=== PATIENT | male | born 1965 | race Caucasian/White ===

== ENCOUNTER 2022-03-15 17:56 | Emergency (ER) | payer OTHER ==
[~2022-03-15] VITALS: Ht 185.4 cm; Wt 106.6 kg
[2022-03-15 17:59] VITALS: BP 132/64
[2022-03-15 18:42] LABS: BASOPHILS % (AUTO) 0.2 % (0.0-2.0); EOSINOPHILS # (AUTO) 0.1 K/uL (0-0.4); EOSINOPHILS % (AUTO) 0.8 % (0.0-4.0); HEMATOCRIT 31.9 % (36-52); HEMOGLOBIN 9.8 g/dL (12.0-18.0); LYMPHOCYTES # (AUTO) 1.5 K/uL (2.0-11.5); LYMPHOCYTES % (AUTO) 12.4 % (20.5-51.1); MEAN CORPUSCULAR HEMOGLOBIN 26 pg (27-31); MEAN CORPUSCULAR HGB CONC 31 g/dL (33-37); MEAN CORPUSCULAR VOLUME 85.6 fL (80-94); MONOCYTES # (AUTO) 1.3 K/uL (0.8-1.0); MONOCYTES % (AUTO) 10.6 % (1.7-9.3); NEUTROPHILS # (AUTO) 9.5 K/uL (1.8-7.7); PLATELET COUNT (AUTO) 120 K/uL (140-450); RED BLOOD CELL COUNT(AUTO) 3.73 MIL/uL (4.20-6.10); RED CELL DISTRIBUTION WIDTH 20.6 % (11.6-13.7); WHITE BLOOD COUNT (AUTO) 12.5 K/uL (4.8-10.8)
[2022-03-15 18:52] LABS: APPEARANCE,URINE CLEAR (CLEAR); BILIRUBIN,URINE 1+ (NEGATIVE); BLOOD, URINE 3+ (NEGATIVE); COLOR,URINE BROWN (YELLOW); LEUKOCYTE ESTERASE ,URINE 3+ (NEGATIVE); NITRITE, URINE NEGATIVE (NEGATIVE); PH,URINE 5.5 (5.0-9.0); UGLUCOSE NEGATIVE (NEGATIVE)
[2022-03-15 19:13] LABS: RBC,URINE 11-20 (MOD) /HPF (0-5)
[2022-03-15 19:14] LABS: OTHER CASTS, URINE None Seen /LPF (None Seen)
[2022-03-15 19:17] LABS: ALBUMIN 2.8 g/dL (3.4-5.0); ANION GAP 8.9 (8-16); CARBON DIOXIDE 35.8 mmol/L (21-32); CREATININE 0.7 mg/dL (0.6-1.3); POTASSIUM 3.7 mmol/L (3.5-5.1); TOTAL BILIRUBIN 0.5 mg/dL (0.0-1.0)
--- NOTE | 2022-03-15 19:27 | NUR ---
[facility]ATHALIE [facility] D/T BLEEDING FROM SUPRAPUBIC BAG AND PENIS. DENIES ANY OTHER COMPLAINTS. PATIENT IS TRACHED AND VENTED. AAOX1, ON MONITOR.
[2022-03-15] MEDS ORDERED: KEFSUS GT (21:05)
--- NOTE | 2022-03-15 21:14 | NUR ---
ER OK TO GIVE [facility] PT HAS NO IV ACCESS. WILL MEDICATE WITH [facility].
[2022-03-15] MEDS ORDERED: LIDOCAINE MPF 1% 5 ML ONE (21:43)
[2022-03-15] MEDS ORDERED: cefTRIAXone 1,000 MG VIAL ONE (21:43)
[2022-03-15 21:58] VITALS: BP 117/68
--- NOTE | 2022-03-15 21:59 | NUR ---
[facility] WAS CALLED TO NOTIFY OF DISCHARG/F/U INSTRUCTIONS. NKE REPORT GIVEN TO WILLIS GREGORIO. WILL AWAIT FOR TRANSPORTATION ARRANGEMENT.
[2022-03-16 00:09] VITALS: BP 128/79
--- NOTE | 2022-03-16 00:30 | NUR ---
[facility] NOW HERE TO WHEEL MOLDER PT. NKE REPORT GIVEN TO EMS. RT AT BEDSIDE TO ASSIST. PT IS STABLE FOR DISCHARGE, ALL DISCHARGE PAPERS GIVEN TO EMS.
== END 2022-03-16 00:30 ==
LOC: MED 17:56
DX: N39.0 Urinary tract infection, site not specified (principal); R31.9 Hematuria, unspecified
CPT/HCPCS: 36415; 80053; 81001; 85025; 87086; 96372; 99285; J0696; J2001

== ENCOUNTER 2022-06-25 03:38 | Inpatient (IN) | payer OTHER ==
[~2022-06-25] VITALS: Ht 185.4 cm; Wt 104.3 kg
[2022-06-25] MEDS: NYSTATIN POW 100 MU/GM 15 GM BTL TP SCH (00:09)
[2022-06-25] MEDS: BLOOD GLUCOSE MONITORING 1 DEV DEV FS SCH ×3 (00:09→16:30)
[~2022-06-25 03:38] MED LIST: KEFSUS GT
[2022-06-25 03:40] VITALS: BP 126/67
--- NOTE | 2022-06-25 03:40 | NUR ---
Patient placed on bed 10.
--- NOTE | 2022-06-25 03:42 | NUR ---
Patient BIB by ALS from [facility]. C/O fever, abnormal labs R/O sepsis today. Per reported, Patient had fever, right upper thigh redness, swelling yesterday, R/O sepsis, Blood tested result WBC 22.8. Patient had fever ~ 2200 PM temp 104. PMHx: CVA (Quadriplegia), DM, Hypertensive heart disease, Epilepsy
[2022-06-25] MEDS ORDERED: PIPERACILLIN/TAZOBACTAM 3.375 GM in DEXT 5% MINI-BAG PLUS 50 ML IV ONE (03:45)
[2022-06-25] MEDS ORDERED: NACL 0.9% 1,000 ML IV SCH ×2 (03:45→06:00)
[2022-06-25] MEDS ORDERED: VANCOMYCIN 1,000 MG in DEXTROSE 5% 250 ML IV ONE (03:45)
--- NOTE | 2022-06-25 04:00 | NUR ---
COVID-19 swabs collected and sent to lab.
--- NOTE | 2022-06-25 04:11 | NUR ---
X-Ray at bedside.
[2022-06-25 04:20] LABS: HEMATOCRIT 24.2 % (36-52); HEMOGLOBIN 7.6 g/dL (12.0-18.0); MEAN CORPUSCULAR HEMOGLOBIN 25 pg (27-31); MEAN CORPUSCULAR HGB CONC 31 g/dL (33-37); MEAN CORPUSCULAR VOLUME 80.6 fL (80-94); PLATELET COUNT (AUTO) 179 K/uL (140-450); RED BLOOD CELL COUNT(AUTO) 3.01 MIL/uL (4.20-6.10); RED CELL DISTRIBUTION WIDTH 19.7 % (11.6-13.7)
--- NOTE | 2022-06-25 04:31 | NUR ---
Ultrasound at bedside.
[2022-06-25] MEDS ORDERED: FERR325E14 GT (04:38)
[2022-06-25] MEDS ORDERED: METF-1139 GT (04:38)
[2022-06-25] MEDS ORDERED: APIX2.5 GT (04:38)
[2022-06-25] MEDS ORDERED: LOSA100T1 GT (04:38)
[2022-06-25 04:45] VITALS: BP 130/69
[2022-06-25] MEDS ORDERED: DOXA2TAB2 GT (04:45)
[2022-06-25] MEDS ORDERED: ATOR20TA GT (04:45)
[2022-06-25] MEDS ORDERED: MEDI30SO GT (04:45)
[2022-06-25] MEDS ORDERED: prostat (04:45)
[2022-06-25] MEDS ORDERED: LEVE750T3 GT (04:45)
[2022-06-25] MEDS ORDERED: PROSTAT SF GT (04:45)
[2022-06-25] MEDS ORDERED: DOCU-299 GT (04:45)
[2022-06-25] MEDS ORDERED: ASCO500T95 GT (04:45)
[2022-06-25] MEDS ORDERED: FAMO-368 GT (04:45)
[2022-06-25 04:50] LABS: BILIRUBIN,URINE NEGATIVE (NEGATIVE); BLOOD, URINE 3+ (NEGATIVE); COLOR,URINE YELLOW (YELLOW); LEUKOCYTE ESTERASE ,URINE 3+ (NEGATIVE); NITRITE, URINE NEGATIVE (NEGATIVE); PH,URINE 8.5 (5.0-9.0); UGLUCOSE NEGATIVE (NEGATIVE)
[2022-06-25] MEDS ORDERED: ZINC220T3 GT (04:50)
[2022-06-25] MEDS ORDERED: DOXA2TAB1 GT (04:50)
--- NOTE | 2022-06-25 05:01 | NUR ---
0345 PLACED PATIENT ON CARESCAPE VENT. SETTINGS ARE PRVC 14 VT 450 PEEP 5 FIO2 30%.. PATIENT HAS SIZE PORTEX 8 TRACH. SXNED PT AND SPUTUM SAMPLE SENT TO LAB. ABG DRAWN. SEE RESULTS. NO CHANGES MADE TO VENT SETTINGS POST ABG. TRACH CARE DONE
[2022-06-25 05:06] LABS: ALBUMIN 2.1 g/dL (3.4-5.0); ANION GAP 10.8 (8-16); CARBON DIOXIDE 36.7 mmol/L (21-32); CREATININE 0.9 mg/dL (0.6-1.3); POTASSIUM 3.5 mmol/L (3.5-5.1); TOTAL BILIRUBIN 0.6 mg/dL (0.0-1.0)
[2022-06-25 05:11] LABS: PROTHROMBIN TIME 11.2 secs (10.8-13.4)
[2022-06-25 05:15] LABS: WHITE BLOOD COUNT (AUTO) 25.3 K/uL (4.8-10.8)
[2022-06-25 05:16] LABS: LYMPHOCYTES % (MANUAL) 8 % (20-46); MAGNESIUM 2.1 mg/dL (1.8-2.4); MONOCYTES % (MANUAL) 3 % (5-12); PHOSPHORUS 2.3 mg/dL (2.5-4.9)
--- NOTE | 2022-06-25 05:22 | NUR ---
Med-rec reviewed.
[2022-06-25] MEDS ORDERED: PIPERACILLIN/TAZOBACTAM 3.375 GM VIAL IV ONE (05:38)
[2022-06-25 05:48] LABS: APPEARANCE,URINE SLIGHTLY CLOUDY (CLEAR)
[2022-06-25 05:49] LABS: WBC,URINE 16-25 (MOD) /HPF (0-5)
[2022-06-25] MEDS ORDERED: MAGNESIUM OXIDE 400 MG TAB PO PRN (06:00)
[2022-06-25] MEDS ORDERED: POTASSIUM CHLORIDE 10 MEQ TABER PO PRN (06:00)
[2022-06-25] MEDS ORDERED: ONDANSETRON 4 MG/2 ML VIAL IVP PRN (06:00)
[2022-06-25] MEDS ORDERED: HYDROcodone/APAP 5/325 MG 1 TAB TAB PO PRN (06:00)
[2022-06-25] MEDS ORDERED: VANCOMYCIN PER PHARMACY MC PRN (06:00)
[2022-06-25] MEDS ORDERED: MAG SULF 2000 MG/WATER PREMIX 50 ML IV PRN (06:00)
[2022-06-25] MEDS ORDERED: MORPHINE SULFATE 4 MG/ML SYR IVP PRN (06:00)
[2022-06-25] MEDS ORDERED: VANCOMYCIN 1,000 MG VIAL ONE (06:06)
--- NOTE | 2022-06-25 06:45 | NUR ---
Took photo of coccyx wound as protocol
--- NOTE | 2022-06-25 07:30 | NUR ---
report received from december rn,transfer of care at this time, received pt in bed trach to vent, satting 89% on vent, called rt. running vanco at 160cc/hr on 24 g r foot. attempting to print pictures of sacral wound
--- NOTE | 2022-06-25 08:00 | NUR ---
RECEIVED ON A WallitSCAPE R860 VENTILATOR PLUGGED INTO RED OUTLET TOLERATING WELL WITHOUT COMPLICATIONS NOTED TO A PORTEX DCT #8 AIRWAY SECURED WITH A LEONOR TRACH TIE CUFF PRESSURE CHECKED NOTED AMBU BAG AT BEDSIDE LOC NOT ALERT EQUAL CHEST RISE DEEP TRACHEAL SUCTION FOR LARGE THICK YELLOW/GREEN SECRETIONS AIRWAY PATENT
--- NOTE | 2022-06-25 08:08 | NUR ---
Patient will be admitted to care of DR PROCTOR. Admited to TELEMETRY. Will go to room 108B. Belongings list completed. Report to SALLY PEDRO.
--- NOTE | 2022-06-25 08:08 | NUR ---
TRANSFERRED PATIENT TO [facility] 108-B ON VENTILATOR; REMOVED OXYGEN SUPPLY LINE FROM 50 PSI RECONNECTED TO E-TANK WITH ADEQUATE PSI FOR TRANSPORT TOLERATED TRANSFER WELL WITHOUT EVIDENCE OF ANY ADVERSE REACTIONS NOTED SATURATION 99% HR LOW 100'S
[2022-06-25] MEDS ORDERED: VANCOMYCIN 500 MG in DEXTROSE 5% 100 ML IV SCH (08:10)
--- NOTE | 2022-06-25 08:20 | NUR ---
RESTING COMFORTABLY EQUAL CHEST RISE GOOD AERATION THROUGHOUT BILATERAL LUNG JULIO AIRWAY PATENT
[2022-06-25] MEDS ORDERED: DEXTROSE 50% 50 ML SYR IVP PRN (09:00)
--- NOTE | 2022-06-25 09:00 | NUR ---
ADMITTED PT. FROM ED. TRACH TO VENT WITH ORDERED SETTINGS. NON-VERBAL. G-TUBE INTACT. SUPRAPUBIC CATHETER IN PLACE DRAINING DARK YELLOW URINE. COLOSTOMY IN PLACE NOTED DARK BROWNISH GREEN STOOL NOTED. IV ACCESS TO R FOOT GAUGE 24 NOTED. PER ED PATIENT IS HARD STICK. DR. WINKLER ORDERED PICC LINE PLACEMENT.DR. ROMO HERE AND SEEN THE PATIENT. PATIENT IS STABLE AT THIS TIME.
--- NOTE | 2022-06-25 10:45 | NUR ---
NO APPARENT DISTRESS NOTED GOOD CHEST RISE FRANCES TRACHEAL SUCTION FOR LARGE THICK PALE YELLOW SECRETIONS AIRWAY PATENT
[2022-06-25] MEDS: PIPERACILLIN/TAZOBACTAM 3.375 GM in DEXTROSE 5% 50 ML IV SCH ×2 (12:27→18:00)
--- NOTE | 2022-06-25 15:00 | NUR ---
NO SOB NOTED GOOD CHEST RISE DEEP TRAC HEAL SUCTION FOR LARGE THIN PALE YELLOW SECRETIONS OROPHARYNGEAL SUCTION FOR COPIOUS PALE YELLOW/HAZY SECRETIONS AIRWAY PATENT
[2022-06-25 16:00] VITALS: BP 96/55
--- NOTE | 2022-06-25 16:20 | NUR ---
PATIENT TRANSPORTED TO CT WITH RT AT SIDE AT ALL TIMES.
--- NOTE | 2022-06-25 16:23 | NUR ---
TRANSFERRED PATIENT TO RADIOLOGY FOR ABDOMINAL CT SCAN; REMOVED FROM VENTILATOR PLACED ON SUPPLEMENTAL OXYGEN AT 15 LPM VIA E-TANK TO AMBU BAG/HME/INLINE SUCTION CATHETER/TRACHEOSTOMY TUBE BAG DEPRESSION EVERY SYX SECONDS TOLERATED TRANSFERS AND PROCEDURE WELL WITHOUT COMPLICATIONS NOTED
--- NOTE | 2022-06-25 17:17 | NUR ---
STABLE EQUAL CHEST RISE DEEP TRACHEAL SUCTION FOR SMALL THICK YELLOW SECRETIONS AIRWAY PATENT
[2022-06-25 17:26] VITALS: BP 101/62
--- NOTE | 2022-06-25 18:00 | NUR ---
PICC LINE NURSE HERE TO PLACE PICC LINE. CONSENT WAS OBTAINED FROM DAUGHTER REMY.
--- NOTE | 2022-06-25 18:55 | NUR ---
PATIENT REMAINS STABLE AT THIS TIME. PICC LINE TO RIGHT UPPER ARM X2 LUMEN WAS INSERTED BY PICC LINE NURSE AND VERIFIED VIA X-RAY. WILL ENDORSE TO NOC SHIFT NURSE FOR CONTINUITY OF CARE.
--- NOTE | 2022-06-25 19:26 | NUR ---
AT BEDSIDE NOTICED PATIENT DESATURATED SPO2 TO HIGH 80S. SUCTION PATIENT YELLOW THICK SECRETIONS FROM THE TRACH. SPO2 IMPROVED TO 99%. PATIENT STABLE AT THIS TIME. NO RESPIRATORY DISTRESS NOTED AT THIS TIME. WILL CONTINUE TO MONITOR.
--- NOTE | 2022-06-25 19:30 | NUR ---
RECEIVED REPORT FROM DAY SHIFT NURSE ADZE FOR CONTINUITY OF CARE. PATIENT IS NON-VERBAL, NON-RESPONSIVE; BUT IS ABLE TO LOOK AT YOU. PATIENT IS TRACH-VENT; BREATHING IS NORMAL WITH SYMMETRICAL RISE AND FALL OF CHEST. PATIENT'S IV IS A PICC LINE, DOUBLE LUMEN IN THE RIGHT UPPER ARM; RUNNING D5 NS AT 80ML. PATIENT IS SLEEPING, LYING IN SEMI-FOWLERS POSITION WITH PATCH OVER LEFT EYE. BED IS IN LOWEST POSITION, WHEELS LOCKED, CALL LIGHT IN PLACE. WILL CONTINUE TO OBSERVE PATIENT.
[2022-06-25] MEDS: DEXT 5% /NACL 0.9% 1,000 ML IV SCH (19:45)
[2022-06-25] MEDS: VANCOMYCIN HCL 1.25 GM in DEXTROSE 5% 250 ML IV SCH (19:47)
[2022-06-25 20:00] VITALS: BP 101/62
--- NOTE | 2022-06-25 20:00 | NUR ---
RESPIRATORY WENT INTO ROOM TO ASSESS PATIENT. PATIENT'S O2 WAS IN THE HIGH 80'S SO RT RAISED FIO2 FROM 30% TO 40%; O2 SATURATION WENT UP TO 99%. RT STAYED WITH PATIENT FOR A WHILE, AND WAS ABLE TO PUT THE PATIENT BACK ON FIO2 WITH A O2 SATURATION REMAINING AT 99%. ADMINISTERED VANCOMYCIN IVPB TO PATIENT. IVPB WAS STARTED SUCCESSFULLY WITHOUT ANY ISSUES. PATIENT IS STILL SLEEPING. WILL CONTINUE TO OBSERVE PATIENT. Addendum: 06/25/22 at 2008 by Ulises Monson RN FIO2 IS ONCE AGAIN 40
--- NOTE | 2022-06-25 23:10 | NUR ---
AT BEDSIDE WITH PATIENT UPON INITIAL AUSCULTATION PATIENT WAS FOUND TO HAVE COARSE CRACKLES. SUCTIONED PATIENT ONE TIME AND THEIR BREATH SOUNDS BECAME CLEAR. WILL CONTINUE TO MONITOR.
[2022-06-26] VITALS: BP 109/70
--- NOTE | 2022-06-26 00:15 | NUR ---
OBTAINED PATIENT'S BS; BS WAS 123, NO INSULIN COVERAGE WAS NEEDED. ADMINISTERED MEDICATIONS TO PATIENT. PATIENT TOLERATED MEDICATION'S WELL. EMPTIED PATIENT'S COLOSTOMY BAG, 180ML. STOOL WAS LIQUID AND GREEN IN COLOR. PATIENT'S BREATHING IS NORMAL WITH SYMMETRICAL RISE AND FALL OF CHEST. WILL CONTINUE TO OBSERVE PATIENT.
[2022-06-26] MEDS ORDERED: PIPERACILLIN/TAZOBACTAM 3.375 GM VIAL IV ONE ×2 (00:24→05:40)
[2022-06-26] MEDS: PIPERACILLIN/TAZOBACTAM 3.375 GM in DEXTROSE 5% 50 ML IV SCH ×4 (00:30→19:38)
[2022-06-26] MEDS: DEXT 5% /NACL 0.9% 1,000 ML IV SCH ×2 (00:50→19:35)
--- NOTE | 2022-06-26 01:45 | NUR ---
ASSESSED PATIENT'S WOUND. PATIENT HAS DRESSINGS ON THE BACK OF BOTH LEGS JUST BELOW BUTTOCKS, AND A FOAM DRESSING ON HIS SACRAL AREA. DRESSINGS WERE DRY AND INTACT. PATIENT'S BREATHING WAS NORMAL WITH SYMMETRICAL RISE AND FALL OF CHEST. BED WAS IN LOWEST POSITION, WHEELS LOCKED, CALL LIGHT IN PLACE. WILL CONTINUE TO OBSERVE PATIENT.
--- NOTE | 2022-06-26 02:30 | NUR ---
LOOKED IN ON PATIENT. PATIENT WAS SLEEPING, LYING IN SEMI-FOWLERS POSITION. BED IS IN LOWEST POSITION, WHEELS LOCKED, CALL LIGHT IN PLACE. WILL CONTINUE TO OBSERVE PATIENT.
[2022-06-26 04:00] VITALS: BP 110/70
--- NOTE | 2022-06-26 06:08 | NUR ---
ADMINISTERED IVPB ZOSYN. IVPB WAS ADMINISTERED SUCCESSFULLY WITHOUT ANY ISSUES. PATIENT IS BREATHING WITH SYMMETRICAL RISE AND FALL OF CHEST. WILL CONTINUE TO OBSERVE PATIENT.
[2022-06-26] MEDS: BLOOD GLUCOSE MONITORING 1 DEV DEV FS SCH ×4 (07:07→21:31)
--- NOTE | 2022-06-26 07:30 | NUR ---
ADMINISTERED VANCOMYCIN TO PATIENT. IVPB WAS STARTED SUCCESSFULLY WITHOUT ANY ISSUES. PATIENT IS BREATHING WITH SYMMETRICAL RISE AND FALL OF CHEST. WILL ENDORSE CARE TO DAY SHIFT NURSE. Addendum: 06/26/22 at 0823 by Ulises Monson RN ALSO OBTAINED BS, BS WAS 152. ADMINISTERED HUMALOG 2 UNITS FOR COVERAGE.
[2022-06-26] MEDS: VANCOMYCIN HCL 1.25 GM in DEXTROSE 5% 250 ML IV SCH (07:38)
[2022-06-26] MEDS: INSULIN LISPRO SLIDING SCALE 100 UNITS/ML VIAL SUBQ PRN (07:39)
--- NOTE | 2022-06-26 07:45 | NUR ---
ENDORSED TO DAY SHIFT CHARGE NURSE BETTY FOR CONTINUITY OF CARE. PATIENT IS STABLE.
--- NOTE | 2022-06-26 07:52 | NUR ---
RECEIVED ON A ShopSueySCAPE R860 VENTILATOR PLUGGED INTO RED OUTLET TOLERATING WELL WITHOUT ADVERSE REACTIONS TO A PORTEX DCT #8 AIRWAY SECURED WITH A LEONOR TRACH TIE CUFF PRESSURE CHECKED NOTED AMBU BAG AT BEDSIDE STABLE GOOD CHEST RISE DEEP TRACHEAL SUCTION FOR MODERATE THICK YELLOW SECRETIONS AIRWAY PATENT
[2022-06-26 07:53] LABS: BASOPHILS % (AUTO) 0.2 % (0.0-2.0); EOSINOPHILS # (AUTO) 0.1 K/uL (0-0.4); EOSINOPHILS % (AUTO) 0.6 % (0.0-4.0); HEMOGLOBIN 7.3 g/dL (12.0-18.0); LYMPHOCYTES # (AUTO) 0.9 K/uL (2.0-11.5); MEAN CORPUSCULAR HEMOGLOBIN 25 pg (27-31); MEAN CORPUSCULAR HGB CONC 32 g/dL (33-37); MEAN CORPUSCULAR VOLUME 80.4 fL (80-94); MONOCYTES # (AUTO) 0.5 K/uL (0.8-1.0); MONOCYTES % (AUTO) 4.2 % (1.7-9.3); NEUTROPHILS # (AUTO) 9.9 K/uL (1.8-7.7); PLATELET COUNT (AUTO) 172 K/uL (140-450); RED BLOOD CELL COUNT(AUTO) 2.86 MIL/uL (4.20-6.10); WHITE BLOOD COUNT (AUTO) 11.4 K/uL (4.8-10.8)
[2022-06-26 07:58] LABS: ALBUMIN 1.9 g/dL (3.4-5.0); ANION GAP 9.4 (8-16); CARBON DIOXIDE 38.4 mmol/L (21-32); CREATININE 0.8 mg/dL (0.6-1.3); MAGNESIUM 2.4 mg/dL (1.8-2.4); TOTAL BILIRUBIN 0.6 mg/dL (0.0-1.0)
[2022-06-26 08:00] VITALS: BP 117/66
[2022-06-26 08:00] LABS: POTASSIUM 2.8 mmol/L (3.5-5.1)
[2022-06-26 08:28] LABS: LYMPHOCYTES % (AUTO) 8.2 % (20.5-51.1); NEUTROPHILS % (AUTO) 86.8 % (42.2-75.2)
--- NOTE | 2022-06-26 09:17 | NUR ---
PATIENT HAS BEEN SCREENED AND CATEGORIZED HIGH NUTRITION RISK. PATIENT WILL BE SEEN WITHIN 1-2 DAYS OF ADMISSION. 06/25/22-06/27/[address] REFERRAL RECEIVED FOR TF PATIENT. Addendum: 06/26/22 at [address] REFERRAL/CONSULT REASON: WOUNDS/PRESSURE ULCERS PER
[2022-06-26] MEDS ORDERED: POTASSIUM CHL 40 MEQ/ D5-1/2NS 1,000 ML IV SCH (09:20)
[2022-06-26] MEDS: KCL 20 MEQ/WATER INJ PREMIX 200 ML IV PRN (10:13)
[2022-06-26] MEDS: NYSTATIN POW 100 MU/GM 15 GM BTL TP SCH ×2 (10:16→21:38)
[2022-06-26 12:00] VITALS: BP 109/65
--- NOTE | 2022-06-26 12:18 | NUR ---
RESTING COMFORTABLY NO EVIDENCE OF RESPIRATORY DISTRESS NOTED GOOD CHEST RISE DEEP TRACHEAL SUCTION FOR LARGE SEMI THICK YELLOW SECRETIONS AIRWAY PATENT
[2022-06-26 16:00] VITALS: BP 108/67
--- NOTE | 2022-06-26 16:39 | NUR ---
06/26/2022 RD INITIAL ASSESSMENT COMPLETED. PLEASE REFER TO NUTRITION ASSESSMENT UNDER CARE ACTIVITY FOR ESTIMATED NUTRITIONAL NEEDS. 1.WHEN/IF MEDICALLY APPROPRIATE TO INITIATE TF, RECOMMEND GLUCERNA 1.2 RUBEN WITH A GOAL RATE OF 60ML/HR WITH PROSOURCE BID (120 KCAL, 30 GRAMS PROTEIN)TO PROMOTE WOUND HEALING. -FWF 240 Q8H -START AT 20ML/HR AND INCREASE BY 20 ML Q4H PT TOLERATES UNTIL GOAL RATE IS REACHED. THIS TF WILL PROVIDE (WITH PROSOURCE BID) 1848 KCAL, 86 GRAMS OF PROTEIN, AND 1440 ML VOLUME (1159 ML FREE WATER), MEETING 100% OF ESTIMATED ENERGY NEEDS; ADEQUATE. 2.WHEN/IF MEDICALLY APPROPRIATE, RECOMMEND VITAMIN C AND ZINC TO PROMOTE WOUND HEALING; DOSAGE PER MD. 3.MONITOR NPO STATUS. 4.RD TO FOLLOW-UP IN 2-3 DAYS PATIENT IS HIGH RISK. AGUSTINA DELUNA RD
[2022-06-26] MEDS ORDERED: VANCOMYCIN 1,000 MG in DEXTROSE 5% 250 ML IV SCH (19:00)
--- NOTE | 2022-06-26 19:06 | NUR ---
PATIENT REPORT RECEIVED FROM DAYSHIFT RN. CARE OF PATIENT TAKEN OVER. WILL CONTINUE TO MONITOR.
--- NOTE | 2022-06-26 19:10 | NUR ---
REPORT RECEIVED FROM GAETANO PEDRO. CARE TAKEN OVER. PATIENT IS NON REPSONSIVE , ON VENT WITH TRACH. BREATHING WITH THE VENT AT RESP RATE OF 14. MINIMUM SECRETIONS. PT WITH G-TUBE, COLOSTOMY , SUPRAPUBIC CATHETER. PATIENTS LEFT EYE BULDGES OUT WITH A WHITISH LAYER OVER THE EYEBALL, EYE IS COVERED WITH DRESSING. PT WITH PRESSURE WOUND TO COCCYX, DRESSING INTACT. PT WITH GENERALIZED DEPENDENT EDEMA OVER ENTIRE BODY. WILL CONTINUE TO MONITOR.
--- NOTE | 2022-06-26 19:10 | NUR ---
REPORT RECEIVED FROM GAETANO PEDRO. CARE OF PATIENT TAKEN OVER. PATIENT ON VENT WITH TRACH COLLAR. BREATHING WITH VENT. UNABLE TO COMMUNICATE. OPENS EYES WHEN TURNING PATIENT. PATIENTS LEFT EYE IS BULDGING OUT WITH WHITE LAYER OVER EYE, GAUZE OVER EYE. PATIENT IN NO APPARENT DISTRESS. WILL CONTINUE TO MONITOR.
--- NOTE | 2022-06-26 20:01 | NUR ---
End of Shift Summary: Patient remained stable throughout the shift. Provided patient with all necessary meds and services as he is not verbally responsive. Patient remains stable without change at this time.
[2022-06-26 22:38] VITALS: BP 107/70
[2022-06-27] VITALS: BP 110/72
[2022-06-27] MEDS: PIPERACILLIN/TAZOBACTAM 3.375 GM in DEXTROSE 5% 50 ML IV SCH ×4 (00:42→17:37)
[2022-06-27] MEDS: DEXT 5% /NACL 0.9% 1,000 ML IV SCH ×2 (01:50→14:14)
[2022-06-27 04:05] VITALS: BP 105/68
[2022-06-27] MEDS: BLOOD GLUCOSE MONITORING 1 DEV DEV FS SCH ×4 (06:42→21:02)
[2022-06-27] MEDS: INSULIN LISPRO SLIDING SCALE 100 UNITS/ML VIAL SUBQ PRN ×2 (06:44→21:02)
[2022-06-27 07:19] LABS: BASOPHILS % (AUTO) 0.3 % (0.0-2.0); EOSINOPHILS # (AUTO) 0.1 K/uL (0-0.4); EOSINOPHILS % (AUTO) 1.7 % (0.0-4.0); HEMATOCRIT 25.9 % (36-52); HEMOGLOBIN 8.1 g/dL (12.0-18.0); LYMPHOCYTES # (AUTO) 1.1 K/uL (2.0-11.5); LYMPHOCYTES % (AUTO) 20.3 % (20.5-51.1); MEAN CORPUSCULAR HEMOGLOBIN 25 pg (27-31); MEAN CORPUSCULAR HGB CONC 31 g/dL (33-37); MEAN CORPUSCULAR VOLUME 81.1 fL (80-94); MONOCYTES # (AUTO) 0.4 K/uL (0.8-1.0); MONOCYTES % (AUTO) 8.3 % (1.7-9.3); NEUTROPHILS # (AUTO) 3.7 K/uL (1.8-7.7); NEUTROPHILS % (AUTO) 69.4 % (42.2-75.2); PLATELET COUNT (AUTO) 207 K/uL (140-450); RED BLOOD CELL COUNT(AUTO) 3.19 MIL/uL (4.20-6.10); RED CELL DISTRIBUTION WIDTH 19.7 % (11.6-13.7); WHITE BLOOD COUNT (AUTO) 5.3 K/uL (4.8-10.8)
--- NOTE | 2022-06-27 07:40 | NUR ---
FOUND PATIENT ON PRVC 450, F14, +5 35% FIO2. PATIENT IS AWAKE. BED RAISED 30-45%. BREATH SOUNDS WERE COARSE UPON INITIAL AUSCULTATION. SUCTIONED THICK WHITE/CLEAR SECRETIONS AND BREATH SOUNDS IMPROVED AT SECOND LISTEN. VENT IS PLUGGED INTO RED OUTLET, SUCTION, AMBU BAG AND FLOWMETER AT BEDSIDE. WILL CONTINUE TO MONITOR.
[2022-06-27 07:48] LABS: ANION GAP 11.6 (8-16); CARBON DIOXIDE 36.4 mmol/L (21-32); CREATININE 0.7 mg/dL (0.6-1.3); MAGNESIUM 2.3 mg/dL (1.8-2.4); TOTAL BILIRUBIN 0.4 mg/dL (0.0-1.0)
[2022-06-27 08:00] VITALS: BP 131/79
[2022-06-27] MEDS: NYSTATIN POW 100 MU/GM 15 GM BTL TP SCH (09:59)
[2022-06-27 12:00] VITALS: BP 129/82
--- NOTE | 2022-06-27 13:30 | NUR ---
WOUND CARE EVALUATION NOTE: SKIN ASSESSMENT DONE ON THIS 56 Y/O PT ADMITTED FROM SNF WITH INITIAL DX ABNORMAL LAB, CONCERN OF SEPSIS. PAST MEDICAL HX INCLUDES CVA WITH QUADRIPLEGIA, SEIZURE DISORDER, CHRONIC VENTILATOR DEPENDENCE WITH TRACHEOSTOMY, PEG TUBE DEPENDENCE. ALL ABOVE INFORMATION OBTAINED FROM ADMISSION H&P. PT IS AWAKE. LEFT EYE DYSFUNCTION. SKIN IS WARM AND DRY, BLE HAIR GROWTH, NO EDEMA. DORSAL PEDAL PULSES PRESENT AND NORMAL. CAPILLARY REFILLED < 2 SEC. X 10 TOES. LLQ. COLOSTOMY OVAL SHAPE 1 3/4 WITH LOOP BRIDGE(MARITZA) LIKE DEVICE IN PLACE AND SECURED WITH SUTURES. SUPRAPUBIC CATH PATENT WITH MODERATE AMOUNT YELLOW COLOR URINE OUT PUT OBSERVED. PT. ADMITTED WITH MULTIPLE PRESSURE INJURIES. INTEGUMENTARY: -ORAL MEMBRANE PINK INTACT, LIPS, CHEEKS SKIN DRY, NO OPEN WOUNDS -TRACH SITE, PEG TUBE, COLOSTOMY AND SUPRAPUBIC CATH FLORES STOMA SKIN DRY AND CLEAN. SKIN INTACT. -ABDOMEN DISTENDED, SOFT -MOISTURE ASSOCIATED SKIN DAMAGE TO: B/L GROINS, MEDIAL THIGHS AND POSTERIOR THIGHS TO SCROTAL, SKIN REDNESS RASH, PEELING -PRESSURE INJURY DTI TO RIGHT TROCHANTER 4X2CM, WOUND BED PALE PURPLE FLORES-WOUND SKIN MOIST INTACT -PRESSURE INJURY STAGE 2 TO LEFT TROCHANTER 3X2CM, WOUND BED PALE PINK FLORES-WOUND SKIN MOIST INTACT - PRESSURE INJURY STAGE 2, LEFT ISCHIUM 3X2X0.1CM WOUND BED IS RED 100% GRANULATING TISSUE, MOIST, NO ODOR, FLORES WOUND SKIN INTACT. - PRESSURE INJURY STAGE 3, RIGHT ISCHIUM 4X3X0.2CM WOUND BED IS RED 100% GRANULATING TISSUE, MOIST, NO ODOR, FLORES WOUND SKIN INTACT. -PRESSURE INJURY STAGE 4, SACRAL COCCYX 2X3X2 CM, WOUND BED IS RED, 100% GRANULATING TISSUE, MOIST, NO ODOR, FLORES WOUND SKIN INTACT. -BILATERAL HEELS BLANCHABLE REDNESS, SKIN INTACT RECOMMENDATIONS: -APPLY NYSTATIN CREAM TO B/L GROINS, MEDIAL THIGHS AND POSTERIOR THIGHS TO SCROTAL BID AND PRN IF SOILING -CLEANSE SACRAL COCCYX, RIGHT AND LEFT ISCHIUM WITH WOUND CLEANSING SOLUTION AND APPLY ALGINATE DRESSING COVER WITH DRY DRESSING QD AND PRN IF SOILING -APPLY HYDROCOLLOID DRESSING TO RIGHT AND LEFT HIPS Q3 DAYS AND PRN IF SOILING -POSITIONING: TURN AND REPOSITION PATIENT Q 2H OR SOONER USE PILLOWS TO KEEP BONY PROMINENCES FROM DIRECT CONTACT WITH SURFACES USE REPOSITIONING WEDGES TO PROVIDE 30-DEGREE ANGLE FOR SIDE LYING POSITIONS OFFLOADING OR FOAM DRESSING TO ALL TUBING TO PREVENT MEDICAL DEVICES RELATED PRESSURE INJURY -RE-EVALUATING AND MANAGING INCONTINENCE MONITOR SKIN CONDITION DURING POSITION CHANGE DO NOT MASSAGE REDNESS, BONY PROMINENCES FREQUENT FLORES-CARE AND PROVIDE BARRIER CREAMS PRN IF SOILING MOISTURE CONTROL BY OFFER BED ACUNA/URINAL /ABSORBENT PAD TO WICK AND HOLD MOISTURE. MAY OBTAIN ORDER FOR FLEX SEAL, RECTAL BAG OR JONES CATHETER PER PHYSICIAN ORDER UNLESS OTHERWISE CONTRAINDICATED KEEP SKIN DRY AND PROTECT FROM FRICTION -MANAGE FRICTION/SHEAR/MOBILITY KEEP HOB AT THE LOWEST LEVEL OF ELEVATION NO MORE THAN 30 DEGREES UNLESS OTHERWISE CONTRAINDICATED USE LIFT SHEET OR TRANSFER DEVICE TO MOVE PATIENT AND PREVENT LATERAL SHEER. CONSIDER TRAPEZE IF APPROPRIATE PROTECT HEELS, ELBOWS BONY PROMINENCES WITH SKIN BERRIES OR FOAM DRESSING IF EXPOSED TO FRICTION OFFLOAD BILATERAL HEELS BY PLACING PILLOWS UNDER CALVES AT ALL TIMES, UNLESS OTHERWISE CONTRAINDICATED -PRESSURE REDISTRIBUTION SURFACE THERAPY JOHANA ISOFLEX DEEPAK MATTRESS -NUTRITION: PLEASE FOLLOW RD RECOMMENDATIONS AND OFFER NUTRITION SUPPLEMENTS IF ORDERED.
--- NOTE | 2022-06-27 14:38 | NUR ---
DC PLANNING PER NOTES PT IS REPORTED TO BE NON RESPONSIVE, THEREFORE SW OUTREACHED TO [facility] TO GATHER COLLATERAL INFORMATION. SPOKE WITH [facility] SUSY MUNGUIA WHO REPORTS PT IS IN SUBACUTE CARE, ADMISSION DATE 06/16/21. PT IS REPORTED TO BE PRIMARILY BEDBOUND AND IS TOTAL CARE W/ FACILITY. PT NONVERBAL AND UNABLE TO MAKE NEEDS KNOWN. PT IS FOLLOWED BY DR. ERICKSON AT [facility]. PT IS REPORTED TO HAVE ACTIVE FAMILY INVOLVEMENT. DC PLAN IS FOR PT TO RETURN TO [facility], ONCE MEDICALLY STABLE. Addendum: 06/27/22 at 1439 by Markell SANDERS Amended: Links added. Addendum: 07/01/22 at 0937 by Markell Purcell SS DC ORDER PUT IN 06/30, REFERRAL PACKET SENT TO [facility]. SPOKE WITH RODOLFO. PT ACCEPTED TO ROOM 24A, ACCEPTING DR GEORGINA COLEMAN. CALL REPORT NUMBER [phone]. OUTREACHED TO PT NURSE, TO CONFIRM PT IS READY FOR DC, NURSE REPORTS DC ORDER CANCELED FOR ELEVATED WBC. OUTREACHED TO RODOLFO AND ENDORSED, THAT DC ORDER WAS CANCELLED, PENDING LABS. Addendum: 07/01/22 at 1121 by Markell SANDERS DC ORDER 07/01. SPOKE WITH RODOLFO, PT ACCEPTED TO ROOM 24A, DR GEORGINA MANCUSO, CALL REPORT NUMBER [phone]. TRANSPORT REQUEST FORM FAXED TO [facility] [phone] Addendum: 07/01/22 at 1240 by Markell SANDERS OUTREACHED TO [facility] TRANSPORT [phone] FOR UPDATE. SPOKE WITH CADEN, WHO CONFIRMS FAXED WAS RECIEVED. [facility] STILL WORKING ON IDENTIFYING. SW PROVIDED CADEN WITH APPROPRIATE RUBEN BACK NUMBER FOR UPDATE HOUSE SUP [phone] OR [phone]. ENDORSED TO PT NURSE AND HOUSE SUP
[2022-06-27] MEDS ORDERED: HYDROCOLLOID DRESSING TP PRN (14:40)
[2022-06-27] MEDS ORDERED: ALGINATE ROPE MC PRN (14:40)
[2022-06-27 16:00] VITALS: BP 141/81
[2022-06-27] MEDS: HYDROCOLLOID DRESSING TP SCH (16:30)
[2022-06-27] MEDS: NYSTATIN/TRIAMCINOLONE CRM 15 GM TUBE TP SCH (16:31)
--- NOTE | 2022-06-27 19:10 | NUR ---
RECEIVED REPORT FROM DAY SHIFT RN CIERRA FOR CONTINUITY OF CARE. PT IS TRACH TO VENT. SETTINGS: FIO2 35%, VT 450, RT 14, PEEP 5. PT SATING 93%. PT NOT IN ANY DISTRESS. PT HAS GTUBE WITH NO FEEDING RUNNING AT THIS TIME. PT HAS IZABEL PICC LINE RUNNING D5 NS 80 CC/HR. PT HAS SACRAL WOUND. PT HAS SUPRAPUBIC CATH. DRAINING CLEAR YELLOW URINE. PT HAS COLOSTOMY. BED AT THE LOWEST POSITION. HEAD OF THE BED RAISED. WILL CONTINUE TO MONITOR THE PT.
[2022-06-27 20:00] VITALS: BP 138/78
[2022-06-27] MEDS: MEROPENEM 1,000 MG in NACL 0.9% 50 ML IV SCH (21:02)
--- NOTE | 2022-06-27 21:11 | NUR ---
SCHEDULE MEDICATIONS GIVEN. NO ADVERSE REACTION NOTED. WILL CONTINUE TO MONITOR THE PT.
[2022-06-28] VITALS: BP 149/77
--- NOTE | 2022-06-28 01:00 | NUR ---
WAS ABLE TO OBTAIN FEEDING PUMP. FEEDING STARTED PER MD ORDERS.
[2022-06-28] MEDS: NYSTATIN/TRIAMCINOLONE CRM 15 GM TUBE TP SCH ×2 (01:06→12:56)
--- NOTE | 2022-06-28 02:52 | NUR ---
AROUND 2100 HAD A ACCIDENTAL NEEDLE STICK WITH THIS PT. GAVE HEPARIN SHOT AND THOUGHT THE SAFETY LOCK WAS COMPLETELY LOCK AFTER ADMINISTRATING THE SHOT. ACCIDENTLY POKED MY LEFT HAND. WENT TO ER AND SPOKE WITH DR. PACE. ORDER BLOOD WORK AND PRESCRIBED ME SOME MEDICATION. DOCTOR ALSO WANTED TO ORDER AN EXPOSER PANEL FOR PT AND RAPID HIV TEST. MESSAGED PARTNER CCO DOCTOR WATSON TO PUT IN THE ORDERS. WAITING FOR REPLY.
--- NOTE | 2022-06-28 03:37 | NUR ---
Per Rock Norman RN after texting Dr Tejeda, it is ok per Dr Tejeda to order hepatitis panel and rapid HIV tests for this patient Holden Mai. Will order hepatitis panel and rapid HIV tests per Dr Tejeda's order
[2022-06-28] MEDS: DEXT 5% /NACL 0.9% 1,000 ML IV SCH ×2 (03:47→17:03)
[2022-06-28 04:00] VITALS: BP 140/84
--- NOTE | 2022-06-28 04:50 | NUR ---
PT OBSERVED. PT NOT IN ANY DISTRESS. BREATHING EVEN AND UNLABORED. IVF RUNNING PER MD ORDER. FEEDING RUNNING PER MD ORDER. WILL CONTINUE TO MONITOR THE PT.
[2022-06-28] MEDS: MEROPENEM 1,000 MG in NACL 0.9% 50 ML IV SCH ×3 (04:51→20:57)
[2022-06-28] MEDS: BLOOD GLUCOSE MONITORING 1 DEV DEV FS SCH ×4 (06:44→21:10)
[2022-06-28] MEDS: INSULIN LISPRO SLIDING SCALE 100 UNITS/ML VIAL SUBQ PRN ×3 (06:45→21:10)
[2022-06-28 07:08] LABS: BASOPHILS % (AUTO) 0.3 % (0.0-2.0); EOSINOPHILS # (AUTO) 0.1 K/uL (0-0.4); EOSINOPHILS % (AUTO) 0.8 % (0.0-4.0); HEMATOCRIT 27.4 % (36-52); HEMOGLOBIN 8.6 g/dL (12.0-18.0); LYMPHOCYTES # (AUTO) 1.1 K/uL (2.0-11.5); LYMPHOCYTES % (AUTO) 14.5 % (20.5-51.1); MEAN CORPUSCULAR HEMOGLOBIN 26 pg (27-31); MEAN CORPUSCULAR HGB CONC 31 g/dL (33-37); MEAN CORPUSCULAR VOLUME 81.4 fL (80-94); MONOCYTES # (AUTO) 0.6 K/uL (0.8-1.0); MONOCYTES % (AUTO) 7.6 % (1.7-9.3); NEUTROPHILS % (AUTO) 76.8 % (42.2-75.2); PLATELET COUNT (AUTO) 262 K/uL (140-450); RED BLOOD CELL COUNT(AUTO) 3.37 MIL/uL (4.20-6.10); RED CELL DISTRIBUTION WIDTH 20.1 % (11.6-13.7); WHITE BLOOD COUNT (AUTO) 7.8 K/uL (4.8-10.8)
--- NOTE | 2022-06-28 07:25 | NUR ---
ENDORSED PT TO DAY SHIFT RN EDILSON FOR CONTINUITY OF CARE. PT IS STABLE.
[2022-06-28 07:48] LABS: ANION GAP 13.2 (8-16); CARBON DIOXIDE 32.7 mmol/L (21-32); CREATININE 0.7 mg/dL (0.6-1.3); TOTAL BILIRUBIN 0.3 mg/dL (0.0-1.0)
[2022-06-28 07:56] LABS: MAGNESIUM 1.9 mg/dL (1.8-2.4)
--- NOTE | 2022-06-28 08:05 | NUR ---
FOUND PATIENT ON PRVC 450 14 +5 AND 35%. PATIENT HAD COARSE BREATH SOUNDS UPON SUCTIONING, RETRIEVED THICK WHITE SECRETIONS. VENT PLUGGED INTO RED OUTLET. AMBU BAG, SUCTION, AND FLOWMETER AT BEDSIDE. WILL CONTINUE TO MONITOR.
[2022-06-28 08:27] VITALS: BP 157/87
[2022-06-28] MEDS ORDERED: POTASSIUM CHLORIDE 10 MEQ TABER PO SCH ×2 (08:53→11:02)
[2022-06-28 09:17] LABS: POTASSIUM 2.9 mmol/L (3.5-5.1)
--- NOTE | 2022-06-28 11:05 | NUR ---
SPOKE TO DR. ACUÑA IN PERSON POC DISCUSSED ABOUT LLQ. COLOSTOMY STOMA WITH LOOP BRIDGE(MARITZA) LIKE HARD DEVICE IN PLACE AND SECURED WITH SUTURES IF NEED FOR SURGEON TO CONSULT. PER DR. ACUÑA HE WILL TAKE A LOOK FIRST.
--- NOTE | 2022-06-28 11:46 | NUR ---
NURSES NOTE RECEIVED PATIENT IN BED , NO VERBAL , VSS , SINUS RHYTHM ON MONITOR , INCONTINENT X2 , HE HAS COLOSTOMY SUPRAPUBIC CATHETER , ON GASTRIC TUBE RAINING 40CC/H , GLUCERNA 1.2 , SKIN NOT INTACT , ON BIPAP WILL CONTINUE OBSERVE ,
[2022-06-28 12:18] VITALS: BP 141/84
[2022-06-28] MEDS: ALGINATE ROPE MC SCH (13:04)
--- NOTE | 2022-06-28 13:37 | NUR ---
dressing on his wound done ,and Meds given
--- NOTE | 2022-06-28 15:09 | NUR ---
06/28/22 RD FOLLOW UP COMPLETED PLEASE REFER TO NUTRITION ASSESSMENT UNDER CARE ACTIVITY FOR ESTIMATED NUTRITIONAL NEEDS. 1. CONTINUE GLUCERNA 1.2 RUBEN WITH A GOAL RATE OF 60ML/HR WITH PROSOURCE BID (120 KCAL, 30 GRAMS PROTEIN) TO PROMOTE WOUND HEALING. -FWF 240 Q8H OR PER MD -AT GOAL RATE (WITH PROSOURCE BID), PT WILL RECEIVE 1848 KCAL, 86 GRAMS OF PROTEIN, AND 1440 ML VOLUME (1159 ML FREE WATER), MEETING 100% OF ESTIMATED ENERGY NEEDS; ADEQUATE. 2. WHEN/IF MEDICALLY APPROPRIATE, RECOMMEND VITAMIN C AND ZINC TO PROMOTE WOUND HEALING; DOSAGE PER MD. 3. RD TO FOLLOW-UP IN 7 DAYS PATIENT IS LOW RISK. OREN GHOSH RD
[2022-06-28 16:00] VITALS: BP 102/67
[2022-06-28] MEDS ORDERED: NYSTATIN POW 100 MU/GM 15 GM BTL TP SCH (16:00)
--- NOTE | 2022-06-28 16:00 | NUR ---
NUSES NOTE PATIENT A/OX1 ,NONVERBAL , VSS , ON BIPAP , ON IV FLUID RAINING 80CC/H , UOT POT 900CC ON GASTRIC TUBE FEEDING RAINING 60CC , NO RESIDUAL , WITH SUPRAPUBIC JONES CATHETER NO COMPLAIN , STILL UNDER OBSERVE .
--- NOTE | 2022-06-28 19:43 | NUR ---
REPORT GIVEN TO NIGHT NURSE ALL HIS QUESTION ANSWER
--- NOTE | 2022-06-28 19:50 | NUR ---
RECEIVED REPORT FROM DAY SHIFT WILLIS LOVELL FOR CONTINUITY OF CARE. PT IS NON-VERBAL. PT IS TRACH TO VENT. VENT SETTINGS: FIO2 35%, VT 450, RT 14, PEEP 5. PT HAS RIGHT UPPER ARM PICC LINE. RUNNING D5 NS 80 CC/HR. HAS GTUBE WITH FEEDING GLUCERNA 1.2 60 CC/HR WITH FREE WATER FLUSH 240 CC Q8H. PT HAS COLOSTOMY ON LEFT ABD. PT HAS SUPRAPUBIC CATH DRAINING CLEAR YELLOW URINE. PT HAS SACRAL WOUND. DRESSING CLEAN DRY AND INTACT. BED AT THE LOWEST POSITION. HEAD OF THE BED RAISED. WILL CONTINUE TO MONITOR THE PT.
[2022-06-28 20:00] VITALS: BP 151/71
--- NOTE | 2022-06-28 21:00 | NUR ---
DUE MEDICATIONS GIVEN ORDERED. PATIENT LYING ON THE BED, HOB ELEVATED, PATIENT IS TRACH TO VENT, NO S/S OF DISTRESS NOTED. SAFETY PRECAUTIONS IN PLACE. WILL CONTINUE TO MONITOR THE PATIENT.
[2022-06-28] MEDS: ACETAMINOPHEN 325 MG TAB PO PRN (21:55)
[2022-06-29] VITALS: BP 147/73
--- NOTE | 2022-06-29 01:00 | NUR ---
CHANGED PATIENT'S FEEDING, GIVEN GLUCERNA 1.2CAL TO RUN FOR 60ML/HR, CHECKED FOR RESIDUAL, 0 RESIDUALS. NO SIGNS OF DISTRESS NOTED.
[2022-06-29] MEDS: NYSTATIN/TRIAMCINOLONE CRM 15 GM TUBE TP SCH ×2 (01:47→13:07)
--- NOTE | 2022-06-29 03:07 | NUR ---
PT OBSERVED. PT IS NOT IN ANY ACUTE DISTRESS. VISIBLE RISE AND CHEST FALL. IVF RUNNING PER MD ORDER. FEEDING RUNNING PER MD ORDER. WILL CONTINUE TO MONITOR THE PT.
[2022-06-29] MEDS: DEXT 5% /NACL 0.9% 1,000 ML IV SCH ×3 (03:50→23:11)
[2022-06-29] MEDS: MEROPENEM 1,000 MG in NACL 0.9% 50 ML IV SCH ×2 (04:33→13:12)
[2022-06-29 04:41] VITALS: BP 155/74
[2022-06-29] MEDS: ACETAMINOPHEN 325 MG TAB PO PRN (04:42)
--- NOTE | 2022-06-29 04:42 | NUR ---
PT WAS HAVING A FEVER OF 100.4. TYLENOL GIVEN. COOLING MEASURES TAKEN. WILL CONTINUE TO MONITOR THE PT.
[2022-06-29] MEDS: BLOOD GLUCOSE MONITORING 1 DEV DEV FS SCH ×4 (06:47→20:17)
[2022-06-29] MEDS: INSULIN LISPRO SLIDING SCALE 100 UNITS/ML VIAL SUBQ PRN ×2 (06:47→13:08)
--- NOTE | 2022-06-29 07:02 | NUR ---
PATIENT IS AWAKE, TRACH TO VENT, NO SIGNS OF DISTRESS NOTED. CONTINUOUS WITH TUBE FEEDING. SUPRAPUBIC CATHETER DRAINING YELLOW COLORED URINE TO BEDSIDE BAG. TEMP RECHECKED 99.5, COOLING MEASURES IN PLACE. WILL CONTINUE TO MONITOR THE PATIENT.
--- NOTE | 2022-06-29 07:20 | NUR ---
ENDORSED PT TO DAY SHIFT WILLIS COLE FOR CONTINUITY OF CARE. PT IS STABLE.
--- NOTE | 2022-06-29 07:21 | NUR ---
RECEIVED REPORT FROM DATA ANALYTICS SPECIALIST NURSE FOR CONTINUITY OF CARE. PATIENT LYING DOWN IN BED, TRACH TO VENT, FIO2: 35%, VT:450, RATE:14, PEEP:5. GTUBE IN PLACE, RUNNING CONTINUOUS FEEDING PER MD ORDERS, SUPRAPUBIC CATHETER IN PLACE, COLOSTOMY IN PLACE. APHASIC. IZABEL PICC LINE INTACT, PATENT, INFUSING IVF PER MD ORDERS. REVIEWED PLAN OF CARE WITH PATIENT. UNABLE TO COMPREHEND. SAFETY MEASURES IN PLACE, CALL LIGHT WITHIN REACH. WILL CONTINUE TO MONITOR.
[2022-06-29 08:00] VITALS: BP 152/107
[2022-06-29 08:36] LABS: BASOPHILS % (AUTO) 0.2 % (0.0-2.0); EOSINOPHILS # (AUTO) 0.1 K/uL (0-0.4); EOSINOPHILS % (AUTO) 1.2 % (0.0-4.0); HEMATOCRIT 28.4 % (36-52); HEMOGLOBIN 8.8 g/dL (12.0-18.0); LYMPHOCYTES % (AUTO) 20.2 % (20.5-51.1); MEAN CORPUSCULAR HEMOGLOBIN 25 pg (27-31); MEAN CORPUSCULAR HGB CONC 31 g/dL (33-37); MEAN CORPUSCULAR VOLUME 81.9 fL (80-94); MONOCYTES # (AUTO) 0.8 K/uL (0.8-1.0); MONOCYTES % (AUTO) 8.4 % (1.7-9.3); NEUTROPHILS # (AUTO) 6.8 K/uL (1.8-7.7); PLATELET COUNT (AUTO) 320 K/uL (140-450); RED BLOOD CELL COUNT(AUTO) 3.47 MIL/uL (4.20-6.10); WHITE BLOOD COUNT (AUTO) 9.7 K/uL (4.8-10.8)
[2022-06-29 08:37] LABS: ALBUMIN 2.1 g/dL (3.4-5.0); ANION GAP 11.5 (8-16); CARBON DIOXIDE 30.4 mmol/L (21-32); CREATININE 0.6 mg/dL (0.6-1.3); MAGNESIUM 1.9 mg/dL (1.8-2.4); TOTAL BILIRUBIN 0.3 mg/dL (0.0-1.0)
[2022-06-29 08:43] LABS: POTASSIUM 2.9 mmol/L (3.5-5.1)
[2022-06-29] MEDS: KCL 20 MEQ/WATER INJ PREMIX 200 ML IV PRN (10:29)
--- NOTE | 2022-06-29 10:30 | NUR ---
PRN 40 MEQ POTASSIUM GIVEN FOR K:2.6. WILL CONTINUE TO MONITOR.
[2022-06-29 12:00] VITALS: BP 131/88
[2022-06-29] MEDS ORDERED: NACL 0.9% IV SCH (13:00)
[2022-06-29] MEDS ORDERED: MEROPENEM IV SCH (13:00)
--- NOTE | 2022-06-29 13:00 | NUR ---
PATIENT LYING DOWN IN BED, ORAL CARE PROVIDED. WILL CONTINUE WITH CURRENT PLAN OF CARE.
[2022-06-29] MEDS: ALGINATE ROPE MC SCH (13:07)
[2022-06-29 16:00] VITALS: BP 148/96
--- NOTE | 2022-06-29 16:00 | NUR ---
ASSISTED BOOK MENDER IN CLEANING PATIENT. ORAL CARE PROVIDED. WILL CONTINUE TO MONITOR.
--- NOTE | 2022-06-29 19:10 | NUR ---
Received pt in bed asleep. no s/sx of pain nor discomfort. trach to vent with setting as ordered. g-tube feeding of glucerna 1.2, placement verified via auscultation, no residual noted, head of the bed elevated for aspiration precaution. skin warm and dry to touch. safety precaution in place.
[2022-06-29 20:00] VITALS: BP 135/90
[2022-06-29] MEDS: MEROPENEM 1,000 MG in NACL 0.9% 100 ML IV SCH (20:19)
--- NOTE | 2022-06-29 22:15 | NUR ---
Oral and trach suctioning, oral care rendered. repositioned pt. head of the bed elevated.
[2022-06-30] VITALS: BP 137/88
--- NOTE | 2022-06-30 | NUR ---
PATIENT AFEBRILE. NO RESIDUAL FROM G TUBE. REPOSITIONED FOR COMFORT. HEAD OF THE BED ELEVATED.
[2022-06-30] MEDS: NYSTATIN/TRIAMCINOLONE CRM 15 GM TUBE TP SCH ×2 (01:20→13:06)
--- NOTE | 2022-06-30 02:00 | NUR ---
PATIENT IS ASLEEP. NO S/SX OF PAIN NOR DISCOMFORT. SAFETY PRECAUTIONS IN PLACE.
[2022-06-30 04:00] VITALS: BP 141/77
--- NOTE | 2022-06-30 04:05 | NUR ---
HR NOTED TO BE 140'S, CHECKED ON PT NOTED TWITCHING OF THE RIGHT EYE. CALL PLACED TO DR. WATSON, AWAITING CALL BACK.
[2022-06-30] MEDS: MEROPENEM 1,000 MG in NACL 0.9% 100 ML IV SCH ×3 (04:09→20:35)
--- NOTE | 2022-06-30 04:34 | NUR ---
2ND CALL PLACED TO DR. WATSON, LEFT MESSAGE WITH EXCHANGE. AWAITING CALL BACK.
--- NOTE | 2022-06-30 04:42 | NUR ---
SPOKE WITH DR. WATSON, INFORMED OF EYE TWITCHING AND HR 140'S. NEW ORDER GIVEN AND WILL BE CARRIED OUT.
[2022-06-30] MEDS ORDERED: LORazepam 2 MG/ML VIAL IVP PRN (04:45)
--- NOTE | 2022-06-30 05:39 | NUR ---
NO TWITCHING OF RIGHT EYE AND FACE AT THIS TIME. PATIENT ASLEEP. HR-110'S.
--- NOTE | 2022-06-30 06:18 | NUR ---
PATIENT IS ASLEEP. ALL NEEDS ATTENDED TO. NO S/SX OF DISTRESS NOTED. SAFETY PRECAUTIONS MAINTAINED DURING THE SHIFT. CALL LIGHT IN REACH.
[2022-06-30] MEDS: BLOOD GLUCOSE MONITORING 1 DEV DEV FS SCH ×4 (06:30→20:41)
[2022-06-30] MEDS ORDERED: MERO1PIG IV (06:58)
--- NOTE | 2022-06-30 07:10 | NUR ---
RECEIVED REPORT FROM COM WRITER NURSE. NO SIGNS OF DISTRESSED OR LABORED BREATHING AT THIS TIME. PT IS APHASIC BUT WILL TRACK YOU WITH HIS EYES. PT IS TRACH TO VENT WITH SETTINGS ORDERED, G-TUBE FEEDING OF GLUCERNA 1.2, NO RESIDUAL. safety precaution in place. WILL CONTINUE TO MONITOR
[2022-06-30 07:24] LABS: BASOPHILS % (AUTO) 0.3 % (0.0-2.0); EOSINOPHILS # (AUTO) 0.4 K/uL (0-0.4); EOSINOPHILS % (AUTO) 2.5 % (0.0-4.0); HEMATOCRIT 30.4 % (36-52); HEMOGLOBIN 9.2 g/dL (12.0-18.0); LYMPHOCYTES # (AUTO) 1.8 K/uL (2.0-11.5); LYMPHOCYTES % (AUTO) 11.1 % (20.5-51.1); MEAN CORPUSCULAR HEMOGLOBIN 25 pg (27-31); MEAN CORPUSCULAR HGB CONC 30 g/dL (33-37); MEAN CORPUSCULAR VOLUME 82.9 fL (80-94); MONOCYTES % (AUTO) 6.5 % (1.7-9.3); NEUTROPHILS # (AUTO) 12.5 K/uL (1.8-7.7); NEUTROPHILS % (AUTO) 79.6 % (42.2-75.2); PLATELET COUNT (AUTO) 342 K/uL (140-450); RED BLOOD CELL COUNT(AUTO) 3.67 MIL/uL (4.20-6.10); RED CELL DISTRIBUTION WIDTH 20.7 % (11.6-13.7); WHITE BLOOD COUNT (AUTO) 15.7 K/uL (4.8-10.8)
[2022-06-30 08:00] VITALS: BP 149/84
[2022-06-30 08:00] LABS: ALBUMIN 2.1 g/dL (3.4-5.0); CARBON DIOXIDE 28.3 mmol/L (21-32); CREATININE 0.8 mg/dL (0.6-1.3); MAGNESIUM 1.9 mg/dL (1.8-2.4); POTASSIUM 3.3 mmol/L (3.5-5.1); TOTAL BILIRUBIN 0.3 mg/dL (0.0-1.0)
[2022-06-30] MEDS ORDERED: POTASSIUM CHLORIDE 20% 40 MEQ/15 ML UDC GT SCH (09:00)
[2022-06-30] MEDS: HYDROCOLLOID DRESSING TP SCH (09:21)
[2022-06-30 12:00] VITALS: BP 165/93
[2022-06-30] MEDS: INSULIN LISPRO SLIDING SCALE 100 UNITS/ML VIAL SUBQ PRN ×3 (12:41→20:42)
[2022-06-30] MEDS: ALGINATE ROPE MC SCH (13:07)
[2022-06-30 15:08] LABS: HEPATITIS A ANTIBODY IGM NEGATIVE; HEPATITIS A ANTIBODY IGM NEGATIVE (NEGATIVE)
[2022-06-30 15:09] LABS: HEPATITIS B CORE AB TOTAL NEGATIVE (NEGATIVE); HEPATITIS B SURFACE ANTIBODY NON REACTIVE (NONREACTIVE); HEPATITIS B SURFACE ANTIGEN NEGATIVE (NEGATIVE)
[2022-06-30 16:00] VITALS: BP 158/97
[2022-06-30] MEDS: DEXT 5% /NACL 0.9% 1,000 ML IV SCH (17:26)
--- NOTE | 2022-06-30 19:05 | NUR ---
ENDORSED PT TO HARDWARE TRAINER NURSE
--- NOTE | 2022-06-30 19:10 | NUR ---
RECEIVED PATIENT IN BED ASLEEP. NO S/SX OF PAIN NOR DISCOMFORT. TRACH TO VENT WITH SETTING ORDERED SAT AT 95%. NO ACUTE RESPIRATORY DISTRESS NOTED. G-TUBE FEEDING OF GLUCERNA 1.2 AT 60 ML/HR, PLACEMENT VERIFIED, NO RESIDUAL NOTED, HEAD OF THE BED ELEVATED. SKIN WARM AND DRY TO TOUCH. BED IN THE LOWEST AND LOCKED POSITION FOR SAFETY, CALL LIGHT IN REACH.
[2022-06-30 20:00] VITALS: BP 158/82
--- NOTE | 2022-06-30 22:00 | NUR ---
REPOSITIONED FOR COMFORT. HEAD OF THE BED ELEVATED.
--- NOTE | 2022-06-30 23:55 | NUR ---
COLOSTOMY BAG CHANGED, CLEANED PATIENT, G-TUBE SITE CLEANED AND CHANGED DRESSING. NO RESIDUAL FROM G-TUBE. ORAL AND TRACH SUCTIONING DONE, ORAL CARE RENDERED. POSITIONED FOR COMFORT. CALL LIGHT PLACED WITHIN REACH.
[2022-07-01] MEDS: NYSTATIN/TRIAMCINOLONE CRM 15 GM TUBE TP SCH ×2 (00:16→13:26)
[2022-07-01 00:59] VITALS: BP 130/72
[2022-07-01] MEDS: DEXT 5% /NACL 0.9% 1,000 ML IV SCH ×2 (02:58→18:14)
[2022-07-01 04:00] VITALS: BP 152/97
--- NOTE | 2022-07-01 04:00 | NUR ---
AM CARE DONE. REPOSITIONED PT. NO RESIDUAL FROM G-TUBE, FEEDING TOLERATED WELL. HEAD OF THE BED ELEVATED.
[2022-07-01] MEDS: MEROPENEM 1,000 MG in NACL 0.9% 100 ML IV SCH ×3 (04:11→20:38)
[2022-07-01] MEDS: BLOOD GLUCOSE MONITORING 1 DEV DEV FS SCH ×4 (06:30→20:39)
--- NOTE | 2022-07-01 06:35 | NUR ---
PATIENT IS ASLEEP. NO DISTRESS NOTED. ALL NEEDS ATTENDED TO. SAFETY PRECAUTIONS MAINTAINED DURING THE SHIFT, CALL LIGHT REMAINED WITHIN REACH.
--- NOTE | 2022-07-01 07:05 | NUR ---
RECEIVED REPORT FROM ADVANCED PRACTICE PROFESSIONAL NURSE. NO SIGNS OF DISTRESSED OR LABORED BREATHING AT THIS TIME. PT IS APHASIC BUT WILL TRACK YOU WITH HIS EYES. PT IS TRACH TO VENT WITH SETTINGS ORDERED, G-TUBE FEEDING OF GLUCERNA 1.2, NO RESIDUAL. ALL SAFETY MEASURES IN PLACE. WILL CONTINUE TO MONITOR
[2022-07-01 08:00] VITALS: BP 180/77
[2022-07-01 09:29] LABS: CARBON DIOXIDE 30.7 mmol/L (21-32); CREATININE 0.7 mg/dL (0.6-1.3); POTASSIUM 3.7 mmol/L (3.5-5.1)
[2022-07-01 09:30] LABS: BASOPHILS % (AUTO) 0.3 % (0.0-2.0); EOSINOPHILS # (AUTO) 0.6 K/uL (0-0.4); EOSINOPHILS % (AUTO) 8.1 % (0.0-4.0); HEMATOCRIT 27.7 % (36-52); HEMOGLOBIN 8.5 g/dL (12.0-18.0); LYMPHOCYTES # (AUTO) 2.6 K/uL (2.0-11.5); LYMPHOCYTES % (AUTO) 32.6 % (20.5-51.1); MEAN CORPUSCULAR HEMOGLOBIN 25 pg (27-31); MEAN CORPUSCULAR HGB CONC 31 g/dL (33-37); MEAN CORPUSCULAR VOLUME 82.5 fL (80-94); MONOCYTES # (AUTO) 0.8 K/uL (0.8-1.0); MONOCYTES % (AUTO) 10.4 % (1.7-9.3); NEUTROPHILS # (AUTO) 3.8 K/uL (1.8-7.7); NEUTROPHILS % (AUTO) 48.6 % (42.2-75.2); PLATELET COUNT (AUTO) 304 K/uL (140-450); RED BLOOD CELL COUNT(AUTO) 3.35 MIL/uL (4.20-6.10); RED CELL DISTRIBUTION WIDTH 20.9 % (11.6-13.7); WHITE BLOOD COUNT (AUTO) 7.9 K/uL (4.8-10.8)
[2022-07-01 12:00] VITALS: BP 160/91
[2022-07-01] MEDS: ALGINATE ROPE MC SCH (13:26)
[2022-07-01 15:20] LABS: HEPATITIS B SURFACE ANTIBODY NON REACTIVE (0.00 - 0.99)
[2022-07-01 16:00] VITALS: BP 161/90
--- NOTE | 2022-07-01 19:20 | NUR ---
RECEIVED PT IN BED, ASLEEP. NO S/SX OF PAIN NOR DISCOMFORT. TRACH TO VENT WITH SETTING ORDERED SAT 99%. NO DISTRESS NOTED. G-TUBE FEEDING TOLERATED WELL, NO RESIDUAL, PLACEMENT VERIFIED VIA AUSCULTATION, HEAD OF THE BED ELEVATED. SKIN WARM AND DRY TO TOUCH. SUPRAPUBIC CATHETER LEAKING NOTED, CLEANED SITE, DRAINING YELLOW URINE BY GRAVITY. BED IN THE LOWEST AND LOCKED POSITION FOR SAFETY, CALL LIGHT IN REACH.
--- NOTE | 2022-07-01 19:45 | NUR ---
PAPER BALER CALLED [facility] 2300. CALL PLACED TO WILLIS JARVIS OF [facility] [place], NOT AWARE OF PT BEING ON ISOLATION AND REQUESTING FOR SUPRAPUBIC CATHETER TO BE REPLACED SINCE ITS LEAKING. WILL CALL BACK FOR RM. NUMBER.
[2022-07-01 20:00] VITALS: BP 159/94
--- NOTE | 2022-07-01 20:00 | NUR ---
PT'S NEW RM NUMBER IS [id number], WILLIS JARVIS REQUESTING IF OK TO HAVE SUPRAPUBIC CATHETER CHANGED SINCE IT IS A WEEKEND THEY WILL HAVE A HARD TIME CALLING MD TO REPLACE IT. WILL INFORM MD.
--- NOTE | 2022-07-01 20:14 | NUR ---
INFORMED DR. ACUÑA SUPRAPUBIC CATHETER BEEN LEAKING AND SHORTY, RN REQUESTING IT TO BE CHANGED PRIOR TO DISCHARGE SINCE NO MD WILL BE AVAILABLE THIS WEEKEND, PER DR. ACUÑA HOLD DISCHAGE FOR NOW CONSULT DR. PROCTOR, UROLOGIST. WILL CARRY OUT ORDERED. WELDING OPERATOR MADE AWARE. CALLED [facility] AND MADE AWARE OF DISCHARGE HOLD.
--- NOTE | 2022-07-01 20:23 | NUR ---
CONSULT PLACED TO DR. PROCTOR ORDERED.
--- NOTE | 2022-07-01 21:15 | NUR ---
DR. PROCTOR AWARE, WANTS URO CART AND SUPPLIES BY THE ROOM IN AM. INFORMED WILDLIFE MANAGER.
--- NOTE | 2022-07-01 22:00 | NUR ---
CLEANED PATIENT. ORAL SUCTIONING, ORAL CARE DONE. G-TUBE SITE CLEANED AND CHANGED DRESSING. GOEN AND LINENS CHANGED. POSITIONED FOR COMFORT. HEAD OF THE BED ELEVATED. CALL LIGHT IN REACH.
[2022-07-02] VITALS: BP 147/94
--- NOTE | 2022-07-02 | NUR ---
Patient is asleep. No s/sx of pain nor discomfort. No residual from g-tube, head of the bed elevated for aspiration precaution. call light in reach.
[2022-07-02] MEDS: NYSTATIN/TRIAMCINOLONE CRM 15 GM TUBE TP SCH (01:15)
--- NOTE | 2022-07-02 04:35 | NUR ---
bp elevated 170/98, patient is awake noted some facial grimacing, pain medication given as ordered.
[2022-07-02] MEDS: MEROPENEM 1,000 MG in NACL 0.9% 100 ML IV SCH ×2 (04:44→13:24)
--- NOTE | 2022-07-02 05:00 | NUR ---
bp rechecked-167/98. pt now asleep. no s/sx of pain nor discomfort. call placed to dr. henry regarding elevated bp. awaiting call back.
[2022-07-02 05:12] VITALS: BP 170/98
[2022-07-02 05:24] VITALS: BP 158/100
--- NOTE | 2022-07-02 05:25 | NUR ---
current bp-158/100. pt calm and asleep.
[2022-07-02] MEDS: DEXT 5% /NACL 0.9% 1,000 ML IV SCH (05:34)
[2022-07-02] MEDS: INSULIN LISPRO SLIDING SCALE 100 UNITS/ML VIAL SUBQ PRN (05:41)
[2022-07-02] MEDS: BLOOD GLUCOSE MONITORING 1 DEV DEV FS SCH ×3 (05:41→17:19)
--- NOTE | 2022-07-02 06:18 | NUR ---
Perineal care done. Oral and trach suction done as needed during the shift. no distress noted. no residual noted form g-tube. safety precautions maintained during the shift, call light remained within reach.
--- NOTE | 2022-07-02 07:30 | NUR ---
RECEIVED PATIENT REPORT FROM TEACHER PRESCHOOL NURSE FOR CONTINUITY OF CARE. PT IS AOX1, ABLE TO TRACK WITH EYES. RESPIRATIONS EVEN AND UNLABORED. ON [facility] VENT AC PRVC WITH SETTINGS OF 35% FIO2, VT 450 RATE 14 PEEP 5. SKIN IS WARM, DRY, AND NON-INTACT. HAS OPEN ULCERS ON SACRAL AND RIGHT BUTTOCKS. REINFORCED WITH C/D/I DRESSING. HAS IZABEL PICC LINE INFUSING FLUIDS WELL. FLACC 0. PLAN OF CARE DISCUSSED. SAFETY PRECAUTIONS IN PLACE. CALL LIGHT WITHIN REACH. WILL CONTINUE TO MONITOR.
[2022-07-02 08:00] VITALS: BP 158/95
[2022-07-02 12:00] VITALS: BP 167/103
--- NOTE | 2022-07-02 12:15 | NUR ---
DR. PROCTOR AT PATIENT'S BEDSIDE PLANNING TO REPLACE SUPRAPUBIC CATHETER.
[2022-07-02] MEDS ORDERED: hydrALAZINE 20 MG/ML VIAL IVP PRN (12:50)
--- NOTE | 2022-07-02 13:14 | NUR ---
CONTACTED [facility] IF PATIENT WILL GOING BACK TODAY. PATIENT WILL BE GOING TO ROOM 21A. WILL ENDORSE REPORT TO NURSE. NOTIFIED [facility] AND PATIENT WILL BE TRANSPORTED TO [facility] AT 1900.
[2022-07-02] MEDS: ALGINATE ROPE MC SCH (13:18)
[2022-07-02 16:00] VITALS: BP 154/91
--- NOTE | 2022-07-02 18:08 | NUR ---
CONTACTED TO [facility] TO ENDORSE PATIENT REPORT. ENDORSED REPORT TO WILLIS WIGGINS. PT WILL BE PICKED UP BY [facility] AT 1900 AND WILL BE GOING TO ROOM 21A UNDER DR. ERICKSON.
== END 2022-07-02 20:15 | DRG 720 ==
LOC: MED 03:38 → MTU 06:04
PROVIDERS: ADMIT Hospitalist; ATTEND Emergency Medicine
PROC: 5A1955Z Respiratory Ventilation, Greater than 96 Consecutive Hours (ICD-10-PCS; principal; 2022-06-25)
PROC: 02HV33Z Insertion of Infusion Device into Superior Vena Cava, Percutaneous Approach (ICD-10-PCS; 2022-06-25)
DX: A41.9 Sepsis, unspecified organism (principal); J69.0 Pneumonitis due to inhalation of food and vomit; G82.50 Quadriplegia, unspecified; J96.11 Chronic respiratory failure with hypoxia; Z99.11 Dependence on respirator [ventilator] status; Z93.0 Tracheostomy status; Z20.822 Contact with and (suspected) exposure to COVID-19; R65.20 Severe sepsis without septic shock; N39.0 Urinary tract infection, site not specified; I10 Essential (primary) hypertension; G40.909 Epilepsy, unspecified, not intractable, without status epilepticus; B96.4 Proteus (mirabilis) (morganii) as the cause of diseases classified elsewhere; L30.4 Erythema intertrigo; Z86.73 Personal history of transient ischemic attack (TIA), and cerebral infarction without residual deficits; Z93.3 Colostomy status; Z93.1 Gastrostomy status
CPT/HCPCS: 36415; 71045; 74150; 80048; 80053; 80202; 81001; 82550; 82553; 82948; 83605; 83735; 83880; 84100; 84484; 85025; 85610; 85730; 86704; 86706; 86708; 86709; 86803; 87040; 87070; 87081; 87086; 87205; 87340; 87517; 87521; 87522; 93005; 93970; 94002; 94003; 96365; 96368; 99291; J0360; J0696; J1644; J2060; J2185; J2543; J3370; J3480; J7060; Q0092

== ENCOUNTER 2023-05-14 22:41 | Inpatient (IN) | payer OTHER ==
[~2023-05-14] VITALS: Ht 182.9 cm; Wt 107.1 kg
[2023-05-14 22:41] VITALS: BP 143/99; PULSE 179; RESP 16; TEMP 99; O2SAT 99
[~2023-05-14 22:41] MED LIST changes: +APIX2.5 GT; +ASCO500T95 GT; +ATOR20TA GT; +DOCU-299 GT; +DOXA2TAB2 GT; +FAMO-368 GT; +FERR325E14 GT; -KEFSUS GT; +LEVE750T3 GT; +LOSA-272 GT; +MEDI30SO GT; +MERO1PIG IV; +METF-1139 GT; +PROSTAT SF GT; +ZINC220T3 GT
[2023-05-14] MEDS ORDERED: NACL 0.9% 1,000 ML IV SCH (22:55)
[2023-05-14] MEDS ORDERED: PIPERACILLIN/TAZOBACTAM 3.375 GM in DEXTROSE 5% 50 ML IV ONE (23:05)
[2023-05-14 23:16] VITALS: PULSE 180; RESP 17; O2SAT 98
[2023-05-14 23:23] LABS: BASOPHILS # (AUTO) 0.1 K/uL (0.00-0.22); BASOPHILS % (AUTO) 0.5 % (0.0-2.0); EOSINOPHILS # (AUTO) 0.3 K/uL (0-0.4); EOSINOPHILS % (AUTO) 2.3 % (0.0-4.0); HEMATOCRIT 31.1 % (36-52); HEMOGLOBIN 9.5 g/dL (12.0-18.0); LYMPHOCYTES # (AUTO) 1.7 K/uL (2.0-11.5); LYMPHOCYTES % (AUTO) 14.2 % (20.5-51.1); MEAN CORPUSCULAR HEMOGLOBIN 25 pg (27-31); MEAN CORPUSCULAR HGB CONC 30 g/dL (33-37); MEAN CORPUSCULAR VOLUME 81.2 fL (80-94); MONOCYTES # (AUTO) 1.2 K/uL (0.8-1.0); MONOCYTES % (AUTO) 9.9 % (1.7-9.3); NEUTROPHILS # (AUTO) 8.9 K/uL (1.8-7.7); NEUTROPHILS % (AUTO) 73.1 % (42.2-75.2); PLATELET COUNT (AUTO) 195 K/uL (140-450); RED BLOOD CELL COUNT(AUTO) 3.83 MIL/uL (4.20-6.10); RED CELL DISTRIBUTION WIDTH 21.1 % (11.6-13.7); WHITE BLOOD COUNT (AUTO) 12.2 K/uL (4.8-10.8)
[2023-05-14] MEDS ORDERED: NACL 0.9% 1,000 ML IV ONE (23:25)
[2023-05-14] MEDS ORDERED: PIPERACILLIN/TAZOBACTAM 3.375 GM VIAL IV ONE (23:30)
[2023-05-14] MEDS ORDERED: ADENOSINE 6 MG/2 ML VIAL IVP ONE (23:35)
[2023-05-14 23:52] LABS: APPEARANCE,URINE CLEAR (CLEAR); BILIRUBIN,URINE NEGATIVE (NEGATIVE); BLOOD, URINE 3+ (NEGATIVE); COLOR,URINE YELLOW (YELLOW); LEUKOCYTE ESTERASE ,URINE 3+ (NEGATIVE); NITRITE, URINE NEGATIVE (NEGATIVE); PROTEIN,URINE 3+ (NEGATIVE); UGLUCOSE NEGATIVE (NEGATIVE); UROBILINOGEN,URINE 0.2 EU/dL (0.2 - 1)
[2023-05-15] VITALS (13 sets, daily range): BP systolic 116–182; BP diastolic 67–113; PULSE 87–170; RESP 14–17; TEMP 98.6; O2SAT 98–100
[2023-05-15 00:04] LABS: LACTIC ACID 2.8 mmol/L (0.4-2.0)
[2023-05-15 00:07] LABS: ALBUMIN 2.6 g/dL (3.4-5.0); ANION GAP 8.3 (8-16); CALCIUM 9.9 mg/dL (8.5-10.1); CREATININE 1.2 mg/dL (0.6-1.3); POTASSIUM 4.3 mmol/L (3.5-5.1); TOTAL BILIRUBIN 0.7 mg/dL (0.0-1.0); TOTAL PROTEIN, SERUM 8.1 g/dL (6.4-8.2)
[2023-05-15 00:08] LABS: BACTERIA,URINE >30 (MANY) /HPF (None Seen); MUCUS,URINE 1+ /LPF (None Seen); SQUAMOUS EPITHELIAL CELL,UR 0-3 (FEW) /LPF (0-3 (FEW)); WBC,URINE TOO MANY TO COUNT /HPF (0-5)
[2023-05-15 00:11] LABS: CREATINE KINASE, TOTAL 99 U/L (39-308)
[2023-05-15 00:26] LABS: PROTHROMBIN TIME 9.5 secs (10.8-13.4)
[2023-05-15 00:33] LABS: PARTIAL THROMBOPLASTIN TIME > 150.0 secs (22-35.6)
[2023-05-15] MEDS ORDERED: ADENOSINE 6 MG/2 ML VIAL IVP ONE ×2 (00:55→00:56)
[2023-05-15] MEDS ORDERED: LORazepam 2 MG/ML VIAL ONE (01:30)
[2023-05-15] MEDS ORDERED: AMIODARONE 150 MG in DEXTROSE 5% 100 ML IV ONE (01:30)
[2023-05-15] MEDS ORDERED: PHENYLEPHRINE 10 MG in NACL 0.9% 250 ML IV ONE (01:30)
[2023-05-15] MEDS ORDERED: LORazepam 2 MG/ML VIAL IVP STA (01:39)
[2023-05-15] MEDS ORDERED: PHENYLEPHRINE 10 MG/ML VIAL ONE (02:01)
[2023-05-15] MEDS ORDERED: AMIODARONE 150 MG/3 ML VIAL IV ONE ×2 (02:02→02:19)
[2023-05-15] MEDS ORDERED: AMIODARONE 450 MG in DEXTROSE 5% 250 ML IV ONE (02:05)
[2023-05-15] MEDS ORDERED: DIGOXIN 0.25 MG/ML AMP IV ONE ×3 (05:25→08:25)
[2023-05-15] MEDS ORDERED: MAGNESIUM OXIDE 400 MG TAB PO PRN (06:40)
[2023-05-15] MEDS ORDERED: ACETAMINOPHEN 325 MG TAB PO PRN (06:40)
[2023-05-15] MEDS ORDERED: HYDROcodone/APAP 5/325 MG 1 TAB TAB PO PRN (06:40)
[2023-05-15] MEDS ORDERED: MAG SULF 2000 MG/WATER PREMIX 50 ML IV PRN (06:40)
[2023-05-15] MEDS ORDERED: POTASSIUM CHLORIDE 10 MEQ TABER PO PRN (06:40)
[2023-05-15] MEDS ORDERED: MORPHINE SULFATE 2 MG/ML SYR IVP PRN (06:40)
[2023-05-15] MEDS: AMIODARONE 450 MG in DEXTROSE 5% 250 ML IV SCH (09:37)
[2023-05-15] MEDS: DILTIAZEM 25 MG/5 ML VIAL IVP PRN ×2 (11:35→16:24)
[2023-05-15] MEDS ORDERED: PIPERACILLIN/TAZOBACTAM 3.375 GM VIAL IV ONE ×3 (12:07→23:10)
[2023-05-15] MEDS: PIPERACILLIN/TAZOBACTAM 3.375 GM in DEXTROSE 5% 50 ML IV SCH ×3 (12:22→23:43)
[2023-05-15] MEDS ORDERED: DIGOXIN 0.25 MG/ML AMP IV SCH ×2 (14:59→21:00)
[2023-05-15] MEDS ORDERED: [UNRECOGNIZED DRUG - CODE] OP (16:10)
[2023-05-15] MEDS: FUROSEMIDE 40 MG/4 ML VIAL IVP SCH (16:21)
[2023-05-15] MEDS ORDERED: METOPROLOL 50 MG TAB ONE (16:54)
[2023-05-15] MEDS ORDERED: METOPROLOL 50 MG TAB PO SCH (16:56)
[2023-05-15 17:29] LABS: FLU A ANTIGEN negative (NEGATIVE); FLU B ANTIGEN NEGATIVE (NEGATIVE)
[2023-05-15] MEDS: DILTIAZEM 125 MG in DEXTROSE 5% 100 ML IV SCH (18:56)
[2023-05-15] MEDS: METOPROLOL 50 MG TAB GT SCH (21:05)
[2023-05-15] MEDS: APIXABAN 2.5 MG TAB GT SCH (21:06)
[2023-05-16] VITALS (31 sets, daily range): BP systolic 119–170; BP diastolic 69–127; PULSE 72–161; RESP 14–20; TEMP 97.8–99.5; O2SAT 92–100
[2023-05-16] MEDS ORDERED: AMIODARONE 450 MG/9 ML VIAL IV ONE (01:52)
[2023-05-16] MEDS: AMIODARONE 450 MG in DEXTROSE 5% 250 ML IV SCH (02:04)
[2023-05-16] MEDS ORDERED: DILTIAZEM 125 MG/25 ML VIAL IV ONE (04:39)
[2023-05-16] MEDS: DILTIAZEM 125 MG in DEXTROSE 5% 100 ML IV SCH ×2 (04:43→16:48)
[2023-05-16] MEDS ORDERED: PIPERACILLIN/TAZOBACTAM 3.375 GM VIAL IV ONE (04:47)
[2023-05-16] MEDS: METOPROLOL 50 MG TAB GT SCH ×5 (04:57→20:47)
[2023-05-16] MEDS: PIPERACILLIN/TAZOBACTAM 3.375 GM in DEXTROSE 5% 50 ML IV SCH ×3 (05:04→17:56)
[2023-05-16 05:26] LABS: BASOPHILS % (AUTO) 0.5 % (0.0-2.0); EOSINOPHILS # (AUTO) 0.3 K/uL (0-0.4); EOSINOPHILS % (AUTO) 4.3 % (0.0-4.0); HEMATOCRIT 28.3 % (36-52); HEMOGLOBIN 8.6 g/dL (12.0-18.0); LYMPHOCYTES % (AUTO) 13.1 % (20.5-51.1); MEAN CORPUSCULAR HEMOGLOBIN 25 pg (27-31); MEAN CORPUSCULAR HGB CONC 31 g/dL (33-37); MEAN CORPUSCULAR VOLUME 81.6 fL (80-94); MONOCYTES # (AUTO) 1.3 K/uL (0.8-1.0); MONOCYTES % (AUTO) 16.2 % (1.7-9.3); NEUTROPHILS # (AUTO) 5.2 K/uL (1.8-7.7); NEUTROPHILS % (AUTO) 65.9 % (42.2-75.2); PLATELET COUNT (AUTO) 193 K/uL (140-450); RED BLOOD CELL COUNT(AUTO) 3.46 MIL/uL (4.20-6.10); RED CELL DISTRIBUTION WIDTH 21.5 % (11.6-13.7); WHITE BLOOD COUNT (AUTO) 7.9 K/uL (4.8-10.8)
[2023-05-16 07:38] LABS: ALBUMIN 2.4 g/dL (3.4-5.0); ANION GAP 8.6 (8-16); CARBON DIOXIDE 38.4 mmol/L (21-32); MAGNESIUM 2.1 mg/dL (1.8-2.4); TOTAL BILIRUBIN 0.9 mg/dL (0.0-1.0); TOTAL PROTEIN, SERUM 7.3 g/dL (6.4-8.2)
[2023-05-16] MEDS: FUROSEMIDE 40 MG/4 ML VIAL IVP SCH ×2 (08:58→17:09)
[2023-05-16] MEDS: APIXABAN 2.5 MG TAB GT SCH ×2 (08:59→20:48)
[2023-05-16] MEDS: KCL 20 MEQ IN 100 mL PREMIX 200 ML IV PRN (09:23)
[2023-05-16] MEDS ORDERED: DIGOXIN 0.25 MG TAB GT SCH (15:00)
[2023-05-16] MEDS ORDERED: AMIODARONE 200 MG TAB GT SCH (15:00)
[2023-05-16] MEDS ORDERED: DILTIAZEM 125 MG in DEXTROSE 5% 100 ML IV SCH (20:40)
[2023-05-16] MEDS: AMIODARONE 200 MG TAB GT SCH (20:48)
[2023-05-17] VITALS (36 sets, daily range): BP systolic 98–185; BP diastolic 62–127; PULSE 51–115; RESP 12–28; TEMP 97.4–99.4; O2SAT 90–100
[2023-05-17] MEDS: PIPERACILLIN/TAZOBACTAM 3.375 GM in DEXTROSE 5% 50 ML IV SCH ×5 (00:19→23:48)
[2023-05-17] MEDS: METOPROLOL 50 MG TAB GT SCH ×2 (05:32→12:35)
[2023-05-17 06:03] LABS: BASOPHILS % (AUTO) 0.5 % (0.0-2.0); EOSINOPHILS # (AUTO) 0.2 K/uL (0-0.4); EOSINOPHILS % (AUTO) 2.1 % (0.0-4.0); HEMATOCRIT 29.1 % (36-52); HEMOGLOBIN 8.9 g/dL (12.0-18.0); LYMPHOCYTES # (AUTO) 1.2 K/uL (2.0-11.5); LYMPHOCYTES % (AUTO) 16.1 % (20.5-51.1); MEAN CORPUSCULAR HEMOGLOBIN 25 pg (27-31); MEAN CORPUSCULAR HGB CONC 31 g/dL (33-37); MEAN CORPUSCULAR VOLUME 81.1 fL (80-94); MONOCYTES % (AUTO) 13.2 % (1.7-9.3); NEUTROPHILS % (AUTO) 68.1 % (42.2-75.2); PLATELET COUNT (AUTO) 232 K/uL (140-450); RED BLOOD CELL COUNT(AUTO) 3.59 MIL/uL (4.20-6.10); RED CELL DISTRIBUTION WIDTH 21.4 % (11.6-13.7); WHITE BLOOD COUNT (AUTO) 7.4 K/uL (4.8-10.8)
[2023-05-17 06:09] LABS: ALBUMIN 2.6 g/dL (3.4-5.0); ANION GAP 8.5 (8-16); CALCIUM 9.5 mg/dL (8.5-10.1); CARBON DIOXIDE 39.1 mmol/L (21-32); CREATININE 1.1 mg/dL (0.6-1.3); MAGNESIUM 1.9 mg/dL (1.8-2.4); TOTAL BILIRUBIN 0.9 mg/dL (0.0-1.0)
[2023-05-17 06:27] LABS: POTASSIUM 2.6 mmol/L (3.5-5.1)
[2023-05-17] MEDS: KCL 20 MEQ IN 100 mL PREMIX 200 ML IV PRN (06:41)
[2023-05-17] MEDS: FUROSEMIDE 40 MG/4 ML VIAL IVP SCH ×2 (08:35→17:26)
[2023-05-17] MEDS: APIXABAN 2.5 MG TAB GT SCH ×2 (08:36→20:58)
[2023-05-17] MEDS: AMIODARONE 200 MG TAB GT SCH ×2 (09:00→21:00)
[2023-05-17] MEDS ORDERED: DIGOXIN 0.25 MG TAB GT SCH (09:00)
[2023-05-17] MEDS ORDERED: POTASSIUM CHL 40 MEQ/ D5-1/2NS 1,000 ML IV SCH (10:05)
[2023-05-17] MEDS: KCL 20 MEQ IN 100 mL PREMIX 200 ML IV SCH ×2 (10:53→12:09)
[2023-05-17] MEDS: hydrALAZINE 20 MG/ML VIAL IVP PRN (12:39)
[2023-05-17] MEDS ORDERED: HYDRAGUARD CREAM TP PRN (15:40)
[2023-05-17] MEDS ORDERED: THERAHONEY GEL 42.5 GM TP PRN (15:40)
[2023-05-17] MEDS: THERAHONEY GEL 42.5 GM TP SCH (17:26)
[2023-05-17] MEDS: hydrALAZINE 25 MG TAB GT SCH (20:57)
[2023-05-17] MEDS: carvediloL 12.5 MG TAB GT SCH (21:00)
[2023-05-18] VITALS (34 sets, daily range): BP systolic 118–172; BP diastolic 66–129; PULSE 60–103; RESP 14–22; TEMP 96.4–99.2; O2SAT 93–99
[2023-05-18] MEDS: hydrALAZINE 20 MG/ML VIAL IVP PRN ×5 (04:04→17:05)
[2023-05-18] MEDS: hydrALAZINE 25 MG TAB GT SCH ×3 (04:06→21:00)
[2023-05-18] MEDS: PIPERACILLIN/TAZOBACTAM 3.375 GM in DEXTROSE 5% 50 ML IV SCH ×3 (05:26→17:35)
[2023-05-18 06:04] LABS: BASOPHILS % (AUTO) 0.7 % (0.0-2.0); EOSINOPHILS # (AUTO) 0.2 K/uL (0-0.4); EOSINOPHILS % (AUTO) 3.5 % (0.0-4.0); HEMATOCRIT 29.8 % (36-52); LYMPHOCYTES # (AUTO) 1.2 K/uL (2.0-11.5); LYMPHOCYTES % (AUTO) 23.6 % (20.5-51.1); MEAN CORPUSCULAR HEMOGLOBIN 25 pg (27-31); MEAN CORPUSCULAR HGB CONC 30 g/dL (33-37); MEAN CORPUSCULAR VOLUME 81.2 fL (80-94); MONOCYTES # (AUTO) 0.6 K/uL (0.8-1.0); NEUTROPHILS # (AUTO) 3.1 K/uL (1.8-7.7); NEUTROPHILS % (AUTO) 60.2 % (42.2-75.2); PLATELET COUNT (AUTO) 244 K/uL (140-450); RED BLOOD CELL COUNT(AUTO) 3.67 MIL/uL (4.20-6.10); RED CELL DISTRIBUTION WIDTH 21.5 % (11.6-13.7); WHITE BLOOD COUNT (AUTO) 5.2 K/uL (4.8-10.8)
[2023-05-18 06:46] LABS: ALBUMIN 2.8 g/dL (3.4-5.0); ANION GAP 11.4 (8-16); CALCIUM 9.4 mg/dL (8.5-10.1); CARBON DIOXIDE 35.3 mmol/L (21-32); MAGNESIUM 1.8 mg/dL (1.8-2.4); TOTAL PROTEIN, SERUM 8.2 g/dL (6.4-8.2)
[2023-05-18 07:02] LABS: POTASSIUM 2.7 mmol/L (3.5-5.1)
[2023-05-18] MEDS: KCL 20 MEQ IN 100 mL PREMIX 200 ML IV PRN (07:45)
[2023-05-18] MEDS: FUROSEMIDE 40 MG/4 ML VIAL IVP SCH (08:13)
[2023-05-18] MEDS: APIXABAN 2.5 MG TAB GT SCH ×2 (08:13→20:09)
[2023-05-18] MEDS: AMIODARONE 200 MG TAB GT SCH ×3 (08:14→21:47)
[2023-05-18] MEDS: carvediloL 12.5 MG TAB GT SCH ×3 (08:14→20:08)
[2023-05-18] MEDS: HYDRAGUARD CREAM TP SCH ×2 (12:02)
[2023-05-18] MEDS: BLOOD GLUCOSE MONITORING 1 DEV DEV FS SCH ×2 (12:03→17:30)
[2023-05-18] MEDS: THERAHONEY GEL 42.5 GM TP SCH (12:06)
[2023-05-18] MEDS ORDERED: INSULIN LISPRO 100 UNITS/ML VIAL SUBQ SCH (16:30)
[2023-05-18] MEDS ORDERED: KCL 20 MEQ IN 100 mL PREMIX 100 ML IV ONE (16:45)
[2023-05-18] MEDS ORDERED: MAG SULF 2000 MG/WATER PREMIX 50 ML IV SCH (17:00)
[2023-05-18] MEDS: DILTIAZEM 30 MG TAB PO SCH (17:05)
[2023-05-18] MEDS: KCL 20 MEQ IN 100 mL PREMIX 100 ML IV SCH ×2 (17:30→18:48)
[2023-05-18] MEDS: INSULIN LISPRO SLIDING SCALE 100 UNITS/ML VIAL SUBQ PRN (17:35)
[2023-05-18 19:32] LABS: ANION GAP 12.9 (8-16); CALCIUM 8.9 mg/dL (8.5-10.1); CARBON DIOXIDE 33.7 mmol/L (21-32); CREATININE 1.2 mg/dL (0.6-1.3); POTASSIUM 3.6 mmol/L (3.5-5.1)
[2023-05-19] VITALS (31 sets, daily range): BP systolic 114–168; BP diastolic 59–98; PULSE 55–82; RESP 12–20; TEMP 98.1–98.8; O2SAT 91–100
[2023-05-19] MEDS: PIPERACILLIN/TAZOBACTAM 3.375 GM in DEXTROSE 5% 50 ML IV SCH ×4 (00:16→17:02)
[2023-05-19] MEDS: BLOOD GLUCOSE MONITORING 1 DEV DEV FS SCH ×4 (00:40→17:01)
[2023-05-19] MEDS: DILTIAZEM 30 MG TAB PO SCH ×3 (00:50→11:17)
[2023-05-19] MEDS: HYDRAGUARD CREAM TP SCH ×2 (00:50→13:21)
[2023-05-19] MEDS: INSULIN LISPRO SLIDING SCALE 100 UNITS/ML VIAL SUBQ PRN ×3 (00:51→17:05)
[2023-05-19] MEDS: hydrALAZINE 25 MG TAB GT SCH ×3 (05:00→20:25)
[2023-05-19 05:21] LABS: BASOPHILS % (AUTO) 0.4 % (0.0-2.0); EOSINOPHILS # (AUTO) 0.2 K/uL (0-0.4); EOSINOPHILS % (AUTO) 1.7 % (0.0-4.0); HEMATOCRIT 31.9 % (36-52); HEMOGLOBIN 9.7 g/dL (12.0-18.0); LYMPHOCYTES # (AUTO) 1.4 K/uL (2.0-11.5); LYMPHOCYTES % (AUTO) 14.7 % (20.5-51.1); MEAN CORPUSCULAR HEMOGLOBIN 25 pg (27-31); MEAN CORPUSCULAR HGB CONC 30 g/dL (33-37); MEAN CORPUSCULAR VOLUME 81.1 fL (80-94); MONOCYTES # (AUTO) 0.9 K/uL (0.8-1.0); MONOCYTES % (AUTO) 9.9 % (1.7-9.3); NEUTROPHILS # (AUTO) 6.8 K/uL (1.8-7.7); NEUTROPHILS % (AUTO) 73.3 % (42.2-75.2); PLATELET COUNT (AUTO) 315 K/uL (140-450); RED BLOOD CELL COUNT(AUTO) 3.93 MIL/uL (4.20-6.10); RED CELL DISTRIBUTION WIDTH 21.7 % (11.6-13.7); WHITE BLOOD COUNT (AUTO) 9.3 K/uL (4.8-10.8)
[2023-05-19 05:57] LABS: ALBUMIN 2.9 g/dL (3.4-5.0); CALCIUM 9.2 mg/dL (8.5-10.1); CARBON DIOXIDE 36.4 mmol/L (21-32); CREATININE 1.2 mg/dL (0.6-1.3); MAGNESIUM 2.5 mg/dL (1.8-2.4); POTASSIUM 3.4 mmol/L (3.5-5.1); TOTAL BILIRUBIN 0.7 mg/dL (0.0-1.0); TOTAL PROTEIN, SERUM 8.3 g/dL (6.4-8.2)
[2023-05-19] MEDS ORDERED: FUROSEMIDE 40 MG/4 ML VIAL IVP SCH (09:00)
[2023-05-19] MEDS: AMIODARONE 200 MG TAB GT SCH ×2 (09:53→20:26)
[2023-05-19] MEDS: APIXABAN 2.5 MG TAB GT SCH ×2 (09:54→20:27)
[2023-05-19] MEDS: carvediloL 12.5 MG TAB GT SCH ×2 (09:54→20:26)
[2023-05-19] MEDS ORDERED: DEXTROSE 5% 1,000 ML IV SCH (11:30)
[2023-05-19] MEDS: THERAHONEY GEL 42.5 GM TP SCH (13:21)
[2023-05-19] MEDS ORDERED: POTASSIUM CHLORIDE 20% 40 MEQ/15 ML UDC GT SCH (14:05)
[2023-05-19] MEDS ORDERED: POTASSIUM CHLORIDE 20% 40 MEQ/15 ML UDC GT PRN (14:15)
[2023-05-19] MEDS ORDERED: POTASSIUM CHLORIDE 20% 40 MEQ/15 ML UDC ONE (14:17)
[2023-05-19] MEDS: POTASSIUM CHLORIDE 40 MEQ in DEXTROSE 5% 1,000 ML IV SCH (17:03)
[2023-05-19] MEDS ORDERED: PIPE1SOL IV (18:25)
[2023-05-19] MEDS ORDERED: ZOS3.375PM IV ×2 (18:26→18:27)
[2023-05-20] VITALS (25 sets, daily range): BP systolic 137–200; BP diastolic 83–108; PULSE 59–76; RESP 13–16; TEMP 97.3–99.1; O2SAT 96–100
[2023-05-20] MEDS: BLOOD GLUCOSE MONITORING 1 DEV DEV FS SCH ×4 (00:01→17:07)
[2023-05-20] MEDS: INSULIN LISPRO SLIDING SCALE 100 UNITS/ML VIAL SUBQ PRN ×4 (00:06→17:08)
[2023-05-20] MEDS: PIPERACILLIN/TAZOBACTAM 3.375 GM in DEXTROSE 5% 50 ML IV SCH ×3 (00:34→16:00)
[2023-05-20] MEDS: HYDRAGUARD CREAM TP SCH ×2 (00:34→13:15)
[2023-05-20] MEDS: hydrALAZINE 25 MG TAB GT SCH ×2 (04:54→12:11)
[2023-05-20] MEDS: POTASSIUM CHLORIDE 40 MEQ in DEXTROSE 5% 1,000 ML IV SCH (05:25)
[2023-05-20 05:39] LABS: BASOPHILS % (AUTO) 0.5 % (0.0-2.0); EOSINOPHILS # (AUTO) 0.5 K/uL (0-0.4); EOSINOPHILS % (AUTO) 4.5 % (0.0-4.0); HEMATOCRIT 32.5 % (36-52); HEMOGLOBIN 9.8 g/dL (12.0-18.0); LYMPHOCYTES # (AUTO) 2.6 K/uL (2.0-11.5); LYMPHOCYTES % (AUTO) 25.7 % (20.5-51.1); MEAN CORPUSCULAR HEMOGLOBIN 25 pg (27-31); MEAN CORPUSCULAR HGB CONC 30 g/dL (33-37); MEAN CORPUSCULAR VOLUME 82.2 fL (80-94); MONOCYTES # (AUTO) 0.9 K/uL (0.8-1.0); MONOCYTES % (AUTO) 9.3 % (1.7-9.3); PLATELET COUNT (AUTO) 250 K/uL (140-450); RED BLOOD CELL COUNT(AUTO) 3.96 MIL/uL (4.20-6.10); RED CELL DISTRIBUTION WIDTH 21.9 % (11.6-13.7); WHITE BLOOD COUNT (AUTO) 10.1 K/uL (4.8-10.8)
[2023-05-20 05:50] LABS: ALBUMIN 2.8 g/dL (3.4-5.0); ANION GAP 7.6 (8-16); CARBON DIOXIDE 35.5 mmol/L (21-32); CREATININE 1.3 mg/dL (0.6-1.3); MAGNESIUM 2.3 mg/dL (1.8-2.4); POTASSIUM 4.1 mmol/L (3.5-5.1); TOTAL BILIRUBIN 0.5 mg/dL (0.0-1.0)
[2023-05-20] MEDS: AMIODARONE 200 MG TAB GT SCH (08:11)
[2023-05-20] MEDS: carvediloL 12.5 MG TAB GT SCH (08:12)
[2023-05-20] MEDS: APIXABAN 2.5 MG TAB GT SCH (08:13)
[2023-05-20] MEDS ORDERED: PIPERACILLIN/TAZOBACTAM 3.375 GM in DEXTROSE 5% 50 ML IV SCH ×4 (09:00)
[2023-05-20] MEDS ORDERED: FUROSEMIDE 20 MG/2 ML VIAL IVP SCH (09:00)
[2023-05-20] MEDS ORDERED: AMIO200T10 GT (12:16)
[2023-05-20] MEDS ORDERED: CARV12.52 GT (12:16)
[2023-05-20] MEDS ORDERED: PIPE1SOL IV (12:16)
[2023-05-20] MEDS ORDERED: ACET-1182 GT (12:16)
[2023-05-20] MEDS ORDERED: LOSA-272 PO (12:17)
[2023-05-20] MEDS ORDERED: Therahoney Gel TP (12:19)
[2023-05-20] MEDS ORDERED: HUMSLIDE SUBQ (12:19)
[2023-05-20] MEDS ORDERED: GLUC-805 FS (12:19)
[2023-05-20] MEDS: THERAHONEY GEL 42.5 GM TP SCH (13:15)
[2023-05-20] MEDS: hydrALAZINE 20 MG/ML VIAL IVP PRN (14:43)
== END 2023-05-20 19:23 | DRG 130 ==
LOC: MED 22:41 → MMU 05-15 06:39 → MIC 05-15 19:00
PROVIDERS: ADMIT Student in an Organized Health Care Education/Training Program; ATTEND Student in an Organized Health Care Education/Training Program
PROC: 5A1955Z Respiratory Ventilation, Greater than 96 Consecutive Hours (ICD-10-PCS; principal; 2023-05-15)
PROC: 02HV33Z Insertion of Infusion Device into Superior Vena Cava, Percutaneous Approach (ICD-10-PCS; 2023-05-16)
PROC: B548ZZA Ultrasonography of Superior Vena Cava, Guidance (ICD-10-PCS; 2023-05-16)
DX: J96.21 Acute and chronic respiratory failure with hypoxia (principal); G93.40 Encephalopathy, unspecified; I50.23 Acute on chronic systolic (congestive) heart failure; J15.69 Pneumonia due to other Gram-negative bacteria; R53.2 Functional quadriplegia; E87.0 Hyperosmolality and hypernatremia; J81.1 Chronic pulmonary edema; I11.0 Hypertensive heart disease with heart failure; I48.92 Unspecified atrial flutter; Z93.0 Tracheostomy status; N39.0 Urinary tract infection, site not specified; G40.909 Epilepsy, unspecified, not intractable, without status epilepticus; Z20.822 Contact with and (suspected) exposure to COVID-19; E87.6 Hypokalemia; E83.42 Hypomagnesemia; Z74.01 Bed confinement status; Z79.899 Other long term (current) drug therapy; Z93.1 Gastrostomy status
CPT/HCPCS: 36415; 71045; 80048; 80053; 80162; 81001; 82550; 82803; 82948; 83605; 83690; 83735; 83880; 84484; 85025; 85610; 85730; 87040; 87070; 87081; 87086; 87205; 89220; 93005; 94003; 96365; 96375; 96376; 99291; 99292; J0153; J0282; J0360; J1160; J1642; J1644; J1815; J1940; J2060; J2270; J2370; J2543; J3475; J3480; J3490; J7030; J7060; Q0092

== ENCOUNTER 2023-06-15 18:29 | Inpatient (IN) | payer OTHER ==
[~2023-06-15] VITALS: Ht 182.9 cm; Wt 100.2 kg
[~2023-06-15 18:29] MED LIST changes: +ACET-1182 GT; +AMIO200T10 GT; +CARV12.52 GT; +GLUC-805 FS; +HUMSLIDE SUBQ; -LOSA-272 GT; +LOSA-272 PO; -MERO1PIG IV; +PIPE1SOL IV; -PROSTAT SF GT; +Therahoney Gel TP; -ZINC220T3 GT; +[UNRECOGNIZED DRUG - CODE] OP
[2023-06-15 18:35] VITALS: PULSE 157; RESP 15; O2SAT 98
[2023-06-15 18:38] VITALS: BP 160/94; PULSE 154; RESP 24; O2SAT 100
[2023-06-15] MEDS ORDERED: PIPERACILLIN/TAZOBACTAM 3.375 GM in DEXTROSE 5% 50 ML IV ONE (18:45)
[2023-06-15] MEDS ORDERED: VANCOMYCIN 1,000 MG in DEXTROSE 5% 250 ML IV ONE (18:45)
[2023-06-15] MEDS: NACL 0.9% 1,000 ML IV SCH ×2 (18:48→21:39)
[2023-06-15] MEDS ORDERED: PIPERACILLIN/TAZOBACTAM 3.375 GM VIAL IV ONE (18:50)
[2023-06-15 19:17] LABS: BLOOD GAS HCO3 34.9 mmol/L (22-26); BLOOD GAS PCO2 43.7 mmHg (35-45); BLOOD GAS PO2 185.1 mmHg (75-100)
[2023-06-15 19:18] LABS: BLOOD GAS O2 SAT% 99.4 % (92.0-98.5)
[2023-06-15 19:37] LABS: BASOPHILS % (AUTO) 0.5 % (0.0-2.0); EOSINOPHILS # (AUTO) 0.2 K/uL (0-0.4); EOSINOPHILS % (AUTO) 2.6 % (0.0-4.0); HEMATOCRIT 26.5 % (36-52); HEMOGLOBIN 8.1 g/dL (12.0-18.0); LYMPHOCYTES # (AUTO) 1.9 K/uL (2.0-11.5); LYMPHOCYTES % (AUTO) 20.9 % (20.5-51.1); MEAN CORPUSCULAR HEMOGLOBIN 25 pg (27-31); MEAN CORPUSCULAR HGB CONC 31 g/dL (33-37); MEAN CORPUSCULAR VOLUME 80.7 fL (80-94); MONOCYTES % (AUTO) 10.4 % (1.7-9.3); NEUTROPHILS # (AUTO) 6.1 K/uL (1.8-7.7); NEUTROPHILS % (AUTO) 65.6 % (42.2-75.2); PLATELET COUNT (AUTO) 173 K/uL (140-450); RED BLOOD CELL COUNT(AUTO) 3.28 MIL/uL (4.20-6.10); RED CELL DISTRIBUTION WIDTH 22.1 % (11.6-13.7); WHITE BLOOD COUNT (AUTO) 9.3 K/uL (4.8-10.8)
[2023-06-15 19:49] LABS: PARTIAL THROMBOPLASTIN TIME 26.1 secs (22-35.6); PROTHROMBIN TIME 10.5 secs (10.8-13.4)
[2023-06-15] MEDS ORDERED: VANCOMYCIN 1,000 MG VIAL ONE (19:50)
[2023-06-15 19:55] LABS: CREATINE KINASE, TOTAL 23 U/L (39-308)
[2023-06-15 19:57] LABS: ALBUMIN 2.1 g/dL (3.4-5.0); ANION GAP 6.2 (8-16); CALCIUM 8.2 mg/dL (8.5-10.1); CARBON DIOXIDE 37.2 mmol/L (21-32); CREATININE 1.3 mg/dL (0.6-1.3); POTASSIUM 3.4 mmol/L (3.5-5.1); TOTAL BILIRUBIN 0.5 mg/dL (0.0-1.0); TOTAL PROTEIN, SERUM 7.6 g/dL (6.4-8.2)
[2023-06-15 19:59] LABS: LACTIC ACID 1.5 mmol/L (0.4-2.0)
[2023-06-15] MEDS ORDERED: METOPROLOL 5 MG/5 ML VIAL IVP ONE (20:15)
[2023-06-15] MEDS ORDERED: FUROSEMIDE 40 MG/4 ML VIAL IVP ONE (20:15)
[2023-06-15] MEDS ORDERED: METOPROLOL 50 MG TAB GT ONE (20:15)
[2023-06-15] MEDS ORDERED: ASPIRIN 325 MG TAB PEG ONE (20:15)
[2023-06-15 20:38] LABS: BILIRUBIN,URINE NEGATIVE (NEGATIVE); BLOOD, URINE 3+ (NEGATIVE); COLOR,URINE YELLOW (YELLOW); LEUKOCYTE ESTERASE ,URINE 3+ (NEGATIVE); NITRITE, URINE POSITIVE (NEGATIVE); PROTEIN,URINE 3+ (NEGATIVE); UGLUCOSE NEGATIVE (NEGATIVE); UROBILINOGEN,URINE 0.2 EU/dL (0.2 - 1)
[2023-06-15 20:41] LABS: APPEARANCE,URINE HAZY (CLEAR)
[2023-06-15 20:50] LABS: RBC,URINE TOO NUMEROUS TO COUN /HPF (0-5); WBC,URINE TOO MANY TO COUNT /HPF (0-5)
[2023-06-15 20:51] LABS: BACTERIA,URINE 3+ /HPF (None Seen); SQUAMOUS EPITHELIAL CELL,UR None Seen /LPF (0-3 (FEW))
[2023-06-15] MEDS ORDERED: AZITHROMYCIN 500 MG in DEXTROSE 5% 250 ML IV SCH (21:35)
[2023-06-15] MEDS ORDERED: ONDANSETRON 4 MG/2 ML VIAL IVP PRN (21:35)
[2023-06-15] MEDS ORDERED: METOPROLOL 5 MG/5 ML VIAL IVP SCH (21:35)
[2023-06-15 22:19] VITALS: PULSE 161; O2SAT 100
[2023-06-15 22:40] VITALS: PULSE 160; PULSE 162; RESP 19; RESP 24; O2SAT 100
[2023-06-15] MEDS ORDERED: cefTRIAXone 1,000 MG VIAL ONE (23:00)
[2023-06-15] MEDS ORDERED: AZITHROMYCIN 500 MG INJ VIAL IV ONE (23:00)
[2023-06-16] VITALS (18 sets, daily range): BP systolic 129–167; BP diastolic 77–111; PULSE 80–164; RESP 13–24; TEMP 97.4–102; O2SAT 97–100
[2023-06-16] MEDS: MORPHINE SULFATE 2 MG/ML SYR IVP PRN (00:16)
[2023-06-16] MEDS ORDERED: DIGOXIN 0.25 MG/ML AMP IV ONE ×2 (00:20→03:25)
[2023-06-16] MEDS ORDERED: hydrALAZINE 20 MG/ML VIAL ONE (02:44)
[2023-06-16 05:39] LABS: BASOPHILS # (AUTO) 0.1 K/uL (0.00-0.22); BASOPHILS % (AUTO) 0.4 % (0.0-2.0); EOSINOPHILS # (AUTO) 0.2 K/uL (0-0.4); EOSINOPHILS % (AUTO) 1.8 % (0.0-4.0); HEMATOCRIT 29.6 % (36-52); HEMOGLOBIN 8.9 g/dL (12.0-18.0); LYMPHOCYTES # (AUTO) 2.3 K/uL (2.0-11.5); MEAN CORPUSCULAR HEMOGLOBIN 24 pg (27-31); MEAN CORPUSCULAR HGB CONC 30 g/dL (33-37); MEAN CORPUSCULAR VOLUME 80.5 fL (80-94); MONOCYTES # (AUTO) 1.4 K/uL (0.8-1.0); MONOCYTES % (AUTO) 10.6 % (1.7-9.3); NEUTROPHILS # (AUTO) 8.9 K/uL (1.8-7.7); NEUTROPHILS % (AUTO) 69.2 % (42.2-75.2); PLATELET COUNT (AUTO) 183 K/uL (140-450); RED BLOOD CELL COUNT(AUTO) 3.68 MIL/uL (4.20-6.10); RED CELL DISTRIBUTION WIDTH 21.8 % (11.6-13.7); WHITE BLOOD COUNT (AUTO) 12.9 K/uL (4.8-10.8)
[2023-06-16 05:55] LABS: ALBUMIN 2.4 g/dL (3.4-5.0); ANION GAP 9.4 (8-16); CALCIUM 8.5 mg/dL (8.5-10.1); CARBON DIOXIDE 36.8 mmol/L (21-32); CREATININE 1.4 mg/dL (0.6-1.3); MAGNESIUM 2.3 mg/dL (1.8-2.4); POTASSIUM 3.2 mmol/L (3.5-5.1); TOTAL BILIRUBIN 0.5 mg/dL (0.0-1.0); TOTAL PROTEIN, SERUM 8.1 g/dL (6.4-8.2)
[2023-06-16] MEDS: LACTATED RINGERS 1,000 ML IV SCH (08:30)
[2023-06-16] MEDS ORDERED: VANCOMYCIN PER PHARMACY MC PRN (08:40)
[2023-06-16] MEDS: ALBUMIN HUMAN 25% 50 ML IV SCH ×4 (09:20→17:36)
[2023-06-16] MEDS: hydrALAZINE 20 MG/ML VIAL IVP PRN (09:21)
[2023-06-16] MEDS: LORazepam 2 MG/ML VIAL IVP PRN ×2 (11:00→14:31)
[2023-06-16] MEDS ORDERED: POTASSIUM CHLORIDE 20% 40 MEQ/15 ML UDC GT SCH (11:00)
[2023-06-16] MEDS ORDERED: THERAHONEY GEL 42.5 GM TP PRN (12:15)
[2023-06-16] MEDS: METOPROLOL 5 MG/5 ML VIAL IVP PRN (12:17)
[2023-06-16] MEDS ORDERED: MEROPENEM 500 MG in NACL 0.9% 50 ML IV SCH (13:00)
[2023-06-16] MEDS: MEROPENEM 500 MG in NACL 0.9% 50 ML IV SCH ×2 (13:44→21:42)
[2023-06-16] MEDS: THERAHONEY GEL 42.5 GM TP SCH (13:51)
[2023-06-16] MEDS: HYDRAGUARD CREAM TP SCH (13:51)
[2023-06-16] MEDS ORDERED: levETIRAcetam 1,000 MG in NACL 0.9% 100 ML IV SCH (14:30)
[2023-06-16] MEDS ORDERED: DILTIAZEM 25 MG/5 ML VIAL IVP SCH (14:30)
[2023-06-16] MEDS ORDERED: LORazepam 2 MG/ML VIAL IVP SCH (14:45)
[2023-06-16] MEDS: VANCOMYCIN 1,000 MG in DEXTROSE 5% 250 ML IV SCH (15:01)
[2023-06-16] MEDS ORDERED: DIGOXIN 0.25 MG/ML AMP IV SCH (15:20)
[2023-06-16] MEDS ORDERED: AMIODARONE 150 MG in DEXTROSE 5% 100 ML IV SCH (15:30)
[2023-06-16] MEDS: AMIODARONE 450 MG in DEXTROSE 5% 250 ML IV SCH (16:18)
[2023-06-16] MEDS: ACETAMINOPHEN 325 MG TAB PO PRN (16:37)
[2023-06-16] MEDS: levETIRAcetam 500 MG in NACL 0.9% 100 ML IV SCH (21:42)
[2023-06-16] MEDS: carvediloL 12.5 MG TAB PO SCH (21:43)
[2023-06-17] VITALS (27 sets, daily range): BP systolic 105–187; BP diastolic 52–114; PULSE 58–120; RESP 14–40; TEMP 97.4–98.4; O2SAT 98–100
[2023-06-17] MEDS: LACTATED RINGERS 1,000 ML IV SCH (00:35)
[2023-06-17] MEDS ORDERED: AMIODARONE 450 MG/9 ML VIAL IV ONE (00:39)
[2023-06-17] MEDS: HYDRAGUARD CREAM TP SCH ×2 (00:39→12:03)
[2023-06-17] MEDS: AMIODARONE 450 MG in DEXTROSE 5% 250 ML IV SCH (00:52)
[2023-06-17] MEDS: METOPROLOL 5 MG/5 ML VIAL IVP PRN (02:04)
[2023-06-17] MEDS: MORPHINE SULFATE 2 MG/ML SYR IVP PRN (03:44)
[2023-06-17] MEDS: MEROPENEM 500 MG in NACL 0.9% 50 ML IV SCH ×3 (04:19→20:21)
[2023-06-17] MEDS: hydrALAZINE 20 MG/ML VIAL IVP PRN ×2 (04:34→13:24)
[2023-06-17] MEDS ORDERED: THERAHONEY WOUND DRESSING TP PRN (06:50)
[2023-06-17] MEDS: VANCOMYCIN 1,000 MG in DEXTROSE 5% 250 ML IV SCH (08:11)
[2023-06-17] MEDS: carvediloL 12.5 MG TAB PO SCH ×2 (09:03→20:18)
[2023-06-17] MEDS: levETIRAcetam 500 MG in NACL 0.9% 100 ML IV SCH ×2 (09:03→21:02)
[2023-06-17 09:38] LABS: ANION GAP 15.5 (8-16); CALCIUM 8.4 mg/dL (8.5-10.1); CARBON DIOXIDE 29.4 mmol/L (21-32); CREATININE 1.3 mg/dL (0.6-1.3)
[2023-06-17 09:43] LABS: POTASSIUM 2.9 mmol/L (3.5-5.1)
[2023-06-17] MEDS ORDERED: POTASSIUM CHLORIDE 10 MEQ TABER PO PRN (11:15)
[2023-06-17] MEDS ORDERED: MAG SULF 2000 MG/WATER PREMIX 50 ML IV PRN (11:15)
[2023-06-17] MEDS ORDERED: bisacodyL 10 MG SUPP RC PRN (11:15)
[2023-06-17] MEDS ORDERED: POTASSIUM CHLORIDE 20% 40 MEQ/15 ML UDC GT PRN (11:45)
[2023-06-17] MEDS: DEXTROSE 5% 1,000 ML IV SCH (11:48)
[2023-06-17] MEDS: THERAHONEY GEL 42.5 GM TP SCH (12:03)
[2023-06-17] MEDS: AMIODARONE 200 MG TAB PO SCH ×2 (15:40→20:17)
[2023-06-17] MEDS: LORazepam 2 MG/ML VIAL IVP PRN (20:23)
[2023-06-18] VITALS (19 sets, daily range): BP systolic 114–182; BP diastolic 66–88; PULSE 64–99; RESP 18–38; TEMP 97.8–99.8; O2SAT 95–100
[2023-06-18] MEDS: hydrALAZINE 20 MG/ML VIAL IVP PRN (00:36)
[2023-06-18] MEDS: DEXTROSE 5% 1,000 ML IV SCH ×2 (00:56→13:35)
[2023-06-18] MEDS: HYDRAGUARD CREAM TP SCH ×2 (01:02→13:36)
[2023-06-18] MEDS: VANCOMYCIN 1,000 MG in DEXTROSE 5% 250 ML IV SCH (01:44)
[2023-06-18] MEDS: MEROPENEM 500 MG in NACL 0.9% 50 ML IV SCH ×3 (04:05→21:35)
[2023-06-18 06:24] LABS: BASOPHILS % (AUTO) 0.4 % (0.0-2.0); EOSINOPHILS # (AUTO) 0.2 K/uL (0-0.4); EOSINOPHILS % (AUTO) 1.8 % (0.0-4.0); HEMOGLOBIN 9.1 g/dL (12.0-18.0); MEAN CORPUSCULAR HEMOGLOBIN 25 pg (27-31); MEAN CORPUSCULAR HGB CONC 30 g/dL (33-37); MEAN CORPUSCULAR VOLUME 81.8 fL (80-94); MONOCYTES # (AUTO) 0.9 K/uL (0.8-1.0); MONOCYTES % (AUTO) 8.3 % (1.7-9.3); NEUTROPHILS # (AUTO) 7.8 K/uL (1.8-7.7); NEUTROPHILS % (AUTO) 71.5 % (42.2-75.2); PLATELET COUNT (AUTO) 226 K/uL (140-450); RED BLOOD CELL COUNT(AUTO) 3.66 MIL/uL (4.20-6.10); RED CELL DISTRIBUTION WIDTH 22.3 % (11.6-13.7); WHITE BLOOD COUNT (AUTO) 10.9 K/uL (4.8-10.8)
[2023-06-18] MEDS: LORazepam 2 MG/ML VIAL IVP PRN (06:33)
[2023-06-18 06:42] LABS: ANION GAP 12.3 (8-16); CALCIUM 8.2 mg/dL (8.5-10.1); CARBON DIOXIDE 32.4 mmol/L (21-32); CREATININE 1.3 mg/dL (0.6-1.3)
[2023-06-18 06:49] LABS: POTASSIUM 2.7 mmol/L (3.5-5.1)
[2023-06-18] MEDS ORDERED: POTASSIUM CHLORIDE 20% 40 MEQ/15 ML UDC GT ONE (07:00)
[2023-06-18] MEDS: levETIRAcetam 500 MG in NACL 0.9% 100 ML IV SCH ×2 (11:44→21:32)
[2023-06-18] MEDS: AMIODARONE 200 MG TAB PO SCH ×2 (11:45→21:38)
[2023-06-18] MEDS: carvediloL 12.5 MG TAB PO SCH ×2 (11:45→21:38)
[2023-06-18] MEDS ORDERED: POTASSIUM CHLORIDE 20% 40 MEQ/15 ML UDC GT SCH (11:45)
[2023-06-18] MEDS: THERAHONEY GEL 42.5 GM TP SCH (13:36)
[2023-06-18] MEDS: COLISTIMETHATE SODIUM 75 MG in NACL 0.9% 100 ML IV SCH (23:00)
[2023-06-18] MEDS ORDERED: COLISTIMETHATE SODIUM 150 MG VIAL ONE ×2 (23:28→23:31)
[2023-06-19] VITALS (19 sets, daily range): BP systolic 106–221; BP diastolic 58–106; PULSE 61–98; RESP 18–30; TEMP 98.3–99.8; O2SAT 96–100
[2023-06-19] MEDS: COLISTIMETHATE SODIUM 75 MG in NACL 0.9% 100 ML IV SCH ×3 (00:06→20:34)
[2023-06-19] MEDS ORDERED: NACL 0.9% IV ONE (01:00)
[2023-06-19] MEDS ORDERED: COLISTIMETHATE SODIUM IV ONE (01:00)
[2023-06-19] MEDS: HYDRAGUARD CREAM TP SCH ×2 (01:14→15:44)
[2023-06-19] MEDS: MEROPENEM 500 MG in NACL 0.9% 50 ML IV SCH ×3 (04:32→22:27)
[2023-06-19] MEDS: DEXTROSE 5% 1,000 ML IV SCH ×2 (04:32→15:47)
[2023-06-19 05:59] LABS: BASOPHILS # (AUTO) 0.1 K/uL (0.00-0.22); BASOPHILS % (AUTO) 0.5 % (0.0-2.0); EOSINOPHILS # (AUTO) 0.1 K/uL (0-0.4); EOSINOPHILS % (AUTO) 0.7 % (0.0-4.0); HEMATOCRIT 28.2 % (36-52); HEMOGLOBIN 8.5 g/dL (12.0-18.0); LYMPHOCYTES # (AUTO) 2.9 K/uL (2.0-11.5); LYMPHOCYTES % (AUTO) 23.9 % (20.5-51.1); MEAN CORPUSCULAR HEMOGLOBIN 24 pg (27-31); MEAN CORPUSCULAR HGB CONC 30 g/dL (33-37); MEAN CORPUSCULAR VOLUME 80.8 fL (80-94); MONOCYTES # (AUTO) 1.2 K/uL (0.8-1.0); MONOCYTES % (AUTO) 10.3 % (1.7-9.3); NEUTROPHILS # (AUTO) 7.8 K/uL (1.8-7.7); NEUTROPHILS % (AUTO) 64.6 % (42.2-75.2); PLATELET COUNT (AUTO) 283 K/uL (140-450); RED CELL DISTRIBUTION WIDTH 21.9 % (11.6-13.7)
[2023-06-19 06:28] LABS: ANION GAP 12.7 (8-16); CALCIUM 8.5 mg/dL (8.5-10.1); CARBON DIOXIDE 30.9 mmol/L (21-32); CREATININE 1.6 mg/dL (0.6-1.3); POTASSIUM 3.6 mmol/L (3.5-5.1)
[2023-06-19] MEDS: levETIRAcetam 500 MG in NACL 0.9% 100 ML IV SCH ×2 (09:36→21:37)
[2023-06-19] MEDS: AMIODARONE 200 MG TAB PO SCH ×2 (09:36→20:44)
[2023-06-19] MEDS: carvediloL 12.5 MG TAB PO SCH ×2 (09:37→20:44)
[2023-06-19] MEDS: hydrALAZINE 20 MG/ML VIAL IVP PRN (09:38)
[2023-06-19] MEDS ORDERED: DEXTROSE 5% 1,000 ML IV SCH (10:40)
[2023-06-19] MEDS: THERAHONEY GEL 42.5 GM TP SCH (15:44)
[2023-06-20] VITALS (13 sets, daily range): BP systolic 121–210; BP diastolic 53–94; PULSE 61–84; RESP 14–29; TEMP 97–99.8; O2SAT 90–99
[2023-06-20] MEDS: HYDRAGUARD CREAM TP SCH ×2 (01:36→13:28)
[2023-06-20] MEDS: hydrALAZINE 20 MG/ML VIAL IVP PRN ×2 (03:28→18:03)
[2023-06-20] MEDS: MEROPENEM 500 MG in NACL 0.9% 50 ML IV SCH ×3 (05:34→22:01)
[2023-06-20 06:14] LABS: ANION GAP 11.3 (8-16); CALCIUM 8.6 mg/dL (8.5-10.1); CARBON DIOXIDE 32.2 mmol/L (21-32); CREATININE 1.3 mg/dL (0.6-1.3); POTASSIUM 3.5 mmol/L (3.5-5.1)
[2023-06-20] MEDS: COLISTIMETHATE SODIUM 75 MG in NACL 0.9% 100 ML IV SCH ×2 (09:39→20:36)
[2023-06-20] MEDS: levETIRAcetam 500 MG in NACL 0.9% 100 ML IV SCH ×2 (09:40→21:29)
[2023-06-20] MEDS: carvediloL 12.5 MG TAB PO SCH ×2 (09:40→20:35)
[2023-06-20] MEDS: AMIODARONE 200 MG TAB PO SCH ×2 (09:41→20:35)
[2023-06-20] MEDS: hydroCHLOROthiazide 25 MG TAB PO SCH (13:28)
[2023-06-20] MEDS: THERAHONEY GEL 42.5 GM TP SCH (14:06)
[2023-06-20] MEDS: DEXTROSE 5% 1,000 ML IV SCH (17:06)
[2023-06-21] VITALS (14 sets, daily range): BP systolic 145–210; BP diastolic 77–89; PULSE 58–88; RESP 14–25; TEMP 98.1–101; O2SAT 90–100
[2023-06-21] MEDS: HYDRAGUARD CREAM TP SCH ×2 (00:57→12:27)
[2023-06-21] MEDS: hydrALAZINE 20 MG/ML VIAL IVP PRN (00:58)
[2023-06-21] MEDS: DEXTROSE 5% 1,000 ML IV SCH (05:35)
[2023-06-21 05:40] LABS: BASOPHILS # (AUTO) 0.1 K/uL (0.00-0.22); BASOPHILS % (AUTO) 0.3 % (0.0-2.0); EOSINOPHILS # (AUTO) 0.4 K/uL (0-0.4); EOSINOPHILS % (AUTO) 2.6 % (0.0-4.0); HEMATOCRIT 30.6 % (36-52); HEMOGLOBIN 9.3 g/dL (12.0-18.0); LYMPHOCYTES # (AUTO) 2.4 K/uL (2.0-11.5); LYMPHOCYTES % (AUTO) 16.1 % (20.5-51.1); MEAN CORPUSCULAR HEMOGLOBIN 25 pg (27-31); MEAN CORPUSCULAR HGB CONC 30 g/dL (33-37); MEAN CORPUSCULAR VOLUME 81.3 fL (80-94); MONOCYTES # (AUTO) 1.4 K/uL (0.8-1.0); MONOCYTES % (AUTO) 9.3 % (1.7-9.3); NEUTROPHILS # (AUTO) 10.7 K/uL (1.8-7.7); NEUTROPHILS % (AUTO) 71.7 % (42.2-75.2); PLATELET COUNT (AUTO) 266 K/uL (140-450); RED BLOOD CELL COUNT(AUTO) 3.77 MIL/uL (4.20-6.10)
[2023-06-21 05:52] LABS: ANION GAP 9.6 (8-16); CALCIUM 9.3 mg/dL (8.5-10.1); CARBON DIOXIDE 33.7 mmol/L (21-32); CREATININE 1.4 mg/dL (0.6-1.3); POTASSIUM 3.3 mmol/L (3.5-5.1)
[2023-06-21] MEDS: MEROPENEM 500 MG in NACL 0.9% 50 ML IV SCH ×3 (05:58→22:27)
[2023-06-21] MEDS ORDERED: hydrALAZINE 20 MG/ML VIAL IVP PRN (06:35)
[2023-06-21] MEDS ORDERED: hydrALAZINE 20 MG/ML VIAL ONE (06:44)
[2023-06-21] MEDS: carvediloL 12.5 MG TAB PO SCH ×2 (08:47→22:29)
[2023-06-21] MEDS: ACETAMINOPHEN 325 MG TAB PO PRN (08:48)
[2023-06-21] MEDS: levETIRAcetam 500 MG in NACL 0.9% 100 ML IV SCH ×2 (08:49→22:28)
[2023-06-21] MEDS: AMIODARONE 200 MG TAB PO SCH ×2 (08:49→22:28)
[2023-06-21] MEDS: hydroCHLOROthiazide 25 MG TAB PO SCH (08:49)
[2023-06-21] MEDS: COLISTIMETHATE SODIUM 75 MG in NACL 0.9% 100 ML IV SCH ×2 (09:57→22:27)
[2023-06-21] MEDS ORDERED: FUROSEMIDE 40 MG/4 ML VIAL IVP SCH (10:00)
[2023-06-21] MEDS: THERAHONEY GEL 42.5 GM TP SCH (12:27)
[2023-06-21] MEDS: POTASSIUM CHLORIDE 20% 40 MEQ/15 ML UDC GT PRN (12:30)
[2023-06-21] MEDS: LOSARTAN 50 MG TAB PO SCH (22:28)
[2023-06-22] VITALS (22 sets, daily range): BP systolic 145–189; BP diastolic 80–123; PULSE 53–75; RESP 14–24; TEMP 98–99.5; O2SAT 98–100
[2023-06-22] MEDS: HYDRAGUARD CREAM TP SCH ×2 (01:59→12:06)
[2023-06-22] MEDS: MEROPENEM 500 MG in NACL 0.9% 50 ML IV SCH ×2 (04:45→12:06)
[2023-06-22] MEDS ORDERED: CRUSHER, PILL MC ONE (09:49)
[2023-06-22] MEDS: COLISTIMETHATE SODIUM 75 MG in NACL 0.9% 100 ML IV SCH (10:03)
[2023-06-22] MEDS: carvediloL 12.5 MG TAB PO SCH ×2 (10:04→21:07)
[2023-06-22] MEDS: levETIRAcetam 500 MG in NACL 0.9% 100 ML IV SCH (10:04)
[2023-06-22] MEDS: LOSARTAN 50 MG TAB PO SCH ×2 (10:05→21:08)
[2023-06-22] MEDS: AMIODARONE 200 MG TAB PO SCH ×2 (10:05→21:07)
[2023-06-22] MEDS: FUROSEMIDE 20 MG/2 ML VIAL IVP SCH (10:06)
[2023-06-22] MEDS: THERAHONEY GEL 42.5 GM TP SCH (12:07)
[2023-06-22 12:48] LABS: BASOPHILS % (AUTO) 0.1 % (0.0-2.0); EOSINOPHILS # (AUTO) 0.5 K/uL (0-0.4); EOSINOPHILS % (AUTO) 5.6 % (0.0-4.0); HEMATOCRIT 28.7 % (36-52); HEMOGLOBIN 8.8 g/dL (12.0-18.0); LYMPHOCYTES # (AUTO) 2.2 K/uL (2.0-11.5); LYMPHOCYTES % (AUTO) 24.3 % (20.5-51.1); MEAN CORPUSCULAR HEMOGLOBIN 25 pg (27-31); MEAN CORPUSCULAR HGB CONC 31 g/dL (33-37); MEAN CORPUSCULAR VOLUME 81.9 fL (80-94); MONOCYTES # (AUTO) 0.7 K/uL (0.8-1.0); NEUTROPHILS # (AUTO) 5.7 K/uL (1.8-7.7); PLATELET COUNT (AUTO) 220 K/uL (140-450); WHITE BLOOD COUNT (AUTO) 9.2 K/uL (4.8-10.8)
[2023-06-22 13:52] LABS: ANION GAP 13.4 (8-16); CALCIUM 9.3 mg/dL (8.5-10.1); CARBON DIOXIDE 31.4 mmol/L (21-32); CREATININE 1.7 mg/dL (0.6-1.3)
[2023-06-22 13:53] LABS: POTASSIUM 2.8 mmol/L (3.5-5.1)
[2023-06-22] MEDS ORDERED: POTASSIUM CHLORIDE 30 MEQ, LIDOCAINE 1% 25 MG in NACL 0.9% 250 ML IV SCH ×2 (16:30→20:00)
[2023-06-22] MEDS: METOPROLOL 5 MG/5 ML VIAL IVP PRN (17:55)
[2023-06-23] VITALS (16 sets, daily range): BP systolic 120–187; BP diastolic 61–98; PULSE 64–97; RESP 18; TEMP 97.9–98.8; O2SAT 98–100
[2023-06-23] MEDS: MEROPENEM 500 MG in NACL 0.9% 50 ML IV SCH ×4 (00:31→20:30)
[2023-06-23] MEDS: COLISTIMETHATE SODIUM 75 MG in NACL 0.9% 100 ML IV SCH ×3 (01:18→22:40)
[2023-06-23] MEDS: levETIRAcetam 500 MG in NACL 0.9% 100 ML IV SCH ×3 (02:45→21:52)
[2023-06-23] MEDS: hydrALAZINE 20 MG/ML VIAL IVP PRN ×2 (06:07→14:56)
[2023-06-23] MEDS: AMIODARONE 200 MG TAB PO SCH ×2 (08:32→22:00)
[2023-06-23] MEDS: carvediloL 12.5 MG TAB PO SCH ×2 (08:33→22:00)
[2023-06-23] MEDS: FUROSEMIDE 20 MG/2 ML VIAL IVP SCH (08:33)
[2023-06-23] MEDS: LOSARTAN 50 MG TAB PO SCH (08:33)
[2023-06-23 09:50] LABS: BASOPHILS % (AUTO) 0.7 % (0.0-2.0); EOSINOPHILS # (AUTO) 0.4 K/uL (0-0.4); HEMATOCRIT 31.4 % (36-52); HEMOGLOBIN 9.4 g/dL (12.0-18.0); LYMPHOCYTES # (AUTO) 1.4 K/uL (2.0-11.5); LYMPHOCYTES % (AUTO) 20.8 % (20.5-51.1); MEAN CORPUSCULAR HEMOGLOBIN 25 pg (27-31); MEAN CORPUSCULAR HGB CONC 30 g/dL (33-37); MEAN CORPUSCULAR VOLUME 82.2 fL (80-94); MONOCYTES # (AUTO) 0.7 K/uL (0.8-1.0); MONOCYTES % (AUTO) 10.1 % (1.7-9.3); NEUTROPHILS # (AUTO) 4.2 K/uL (1.8-7.7); NEUTROPHILS % (AUTO) 62.4 % (42.2-75.2); PLATELET COUNT (AUTO) 221 K/uL (140-450); RED BLOOD CELL COUNT(AUTO) 3.82 MIL/uL (4.20-6.10); RED CELL DISTRIBUTION WIDTH 23.6 % (11.6-13.7); WHITE BLOOD COUNT (AUTO) 6.8 K/uL (4.8-10.8)
[2023-06-23 10:07] LABS: ALBUMIN 2.6 g/dL (3.4-5.0); ANION GAP 14.7 (8-16); CALCIUM 9.7 mg/dL (8.5-10.1); CARBON DIOXIDE 30.7 mmol/L (21-32); CREATININE 1.7 mg/dL (0.6-1.3); POTASSIUM 3.4 mmol/L (3.5-5.1); TOTAL BILIRUBIN 0.9 mg/dL (0.0-1.0)
[2023-06-23] MEDS: hydrALAZINE 25 MG TAB PO SCH ×3 (10:15→18:05)
[2023-06-23] MEDS: THERAHONEY GEL 42.5 GM TP SCH (13:26)
[2023-06-23] MEDS: POTASSIUM CHLORIDE 20% 40 MEQ/15 ML UDC GT PRN (13:27)
[2023-06-23] MEDS: HYDRAGUARD CREAM TP SCH ×2 (13:27→18:05)
[2023-06-24] VITALS (16 sets, daily range): BP systolic 105–148; BP diastolic 56–82; PULSE 60–80; RESP 18–24; TEMP 98–98.9; O2SAT 93–100
[2023-06-24] MEDS: MEROPENEM 500 MG in NACL 0.9% 50 ML IV SCH ×3 (05:17→20:52)
[2023-06-24] MEDS: HYDRAGUARD CREAM TP SCH ×2 (05:33→13:38)
[2023-06-24] MEDS: FUROSEMIDE 20 MG/2 ML VIAL IVP SCH (09:51)
[2023-06-24] MEDS: carvediloL 12.5 MG TAB PO SCH ×2 (09:52→21:38)
[2023-06-24] MEDS: hydrALAZINE 25 MG TAB PO SCH ×3 (09:52→17:00)
[2023-06-24] MEDS: levETIRAcetam 500 MG in NACL 0.9% 100 ML IV SCH ×2 (09:52→21:27)
[2023-06-24] MEDS: AMIODARONE 200 MG TAB PO SCH ×2 (09:59→21:37)
[2023-06-24] MEDS: COLISTIMETHATE SODIUM 75 MG in NACL 0.9% 100 ML IV SCH ×2 (10:51→22:05)
[2023-06-24] MEDS: THERAHONEY GEL 42.5 GM TP SCH (13:38)
[2023-06-24 14:02] LABS: ANION GAP 15.9 (8-16); CALCIUM 9.9 mg/dL (8.5-10.1); CARBON DIOXIDE 28.3 mmol/L (21-32); CREATININE 1.8 mg/dL (0.6-1.3); POTASSIUM 3.2 mmol/L (3.5-5.1)
[2023-06-24 14:08] LABS: BASOPHILS % (AUTO) 0.3 % (0.0-2.0); EOSINOPHILS # (AUTO) 0.5 K/uL (0-0.4); EOSINOPHILS % (AUTO) 5.2 % (0.0-4.0); HEMATOCRIT 26.9 % (36-52); HEMOGLOBIN 8.2 g/dL (12.0-18.0); LYMPHOCYTES # (AUTO) 2.4 K/uL (2.0-11.5); LYMPHOCYTES % (AUTO) 27.7 % (20.5-51.1); MEAN CORPUSCULAR HEMOGLOBIN 25 pg (27-31); MEAN CORPUSCULAR HGB CONC 31 g/dL (33-37); MEAN CORPUSCULAR VOLUME 81.4 fL (80-94); MONOCYTES % (AUTO) 10.9 % (1.7-9.3); NEUTROPHILS % (AUTO) 55.9 % (42.2-75.2); PLATELET COUNT (AUTO) 208 K/uL (140-450); WHITE BLOOD COUNT (AUTO) 8.9 K/uL (4.8-10.8)
[2023-06-24] MEDS: POTASSIUM CHLORIDE 20% 40 MEQ/15 ML UDC GT PRN (19:13)
[2023-06-24] MEDS ORDERED: COLISTIMETHATE SODIUM 150 MG VIAL ONE (21:51)
[2023-06-25] VITALS (16 sets, daily range): BP systolic 107–138; BP diastolic 57–81; PULSE 2–71; RESP 20–27; TEMP 97.8–98.7; O2SAT 92–100
[2023-06-25] MEDS: HYDRAGUARD CREAM TP SCH ×2 (01:10→14:16)
[2023-06-25] MEDS: FUROSEMIDE 20 MG/2 ML VIAL IVP SCH (09:47)
[2023-06-25] MEDS: hydrALAZINE 25 MG TAB PO SCH ×3 (09:49→17:05)
[2023-06-25] MEDS: levETIRAcetam 500 MG in NACL 0.9% 100 ML IV SCH ×2 (09:49→21:36)
[2023-06-25] MEDS ORDERED: KCL 20 MEQ IN 100 mL PREMIX 200 ML IV SCH (10:00)
[2023-06-25] MEDS: carvediloL 12.5 MG TAB PO SCH ×2 (11:07→21:00)
[2023-06-25] MEDS: COLISTIMETHATE SODIUM 75 MG in NACL 0.9% 100 ML IV SCH ×2 (11:09→22:56)
[2023-06-25] MEDS: AMIODARONE 200 MG TAB PO SCH ×2 (11:56→21:00)
[2023-06-25 12:41] LABS: BASOPHILS % (AUTO) 0.7 % (0.0-2.0); EOSINOPHILS # (AUTO) 0.4 K/uL (0-0.4); EOSINOPHILS % (AUTO) 7.2 % (0.0-4.0); HEMOGLOBIN 8.5 g/dL (12.0-18.0); LYMPHOCYTES # (AUTO) 1.9 K/uL (2.0-11.5); LYMPHOCYTES % (AUTO) 31.5 % (20.5-51.1); MEAN CORPUSCULAR HEMOGLOBIN 25 pg (27-31); MEAN CORPUSCULAR HGB CONC 30 g/dL (33-37); MEAN CORPUSCULAR VOLUME 82.2 fL (80-94); MONOCYTES # (AUTO) 0.7 K/uL (0.8-1.0); MONOCYTES % (AUTO) 11.4 % (1.7-9.3); NEUTROPHILS % (AUTO) 49.2 % (42.2-75.2); PLATELET COUNT (AUTO) 160 K/uL (140-450); RED BLOOD CELL COUNT(AUTO) 3.41 MIL/uL (4.20-6.10); RED CELL DISTRIBUTION WIDTH 23.2 % (11.6-13.7); WHITE BLOOD COUNT (AUTO) 6.1 K/uL (4.8-10.8)
[2023-06-25 12:52] LABS: ANION GAP 11.4 (8-16); CALCIUM 9.9 mg/dL (8.5-10.1); CARBON DIOXIDE 31.2 mmol/L (21-32); CREATININE 1.8 mg/dL (0.6-1.3); POTASSIUM 3.6 mmol/L (3.5-5.1)
[2023-06-25] MEDS: THERAHONEY GEL 42.5 GM TP SCH (14:17)
[2023-06-26] VITALS (13 sets, daily range): BP systolic 137–170; BP diastolic 60–96; PULSE 54–62; RESP 14–27; TEMP 97.3–98.6; O2SAT 97–100
[2023-06-26 06:03] LABS: CARBON DIOXIDE 31.8 mmol/L (21-32); CREATININE 1.6 mg/dL (0.6-1.3); POTASSIUM 3.8 mmol/L (3.5-5.1)
[2023-06-26 06:11] LABS: BASOPHILS # (AUTO) 0.1 K/uL (0.00-0.22); BASOPHILS % (AUTO) 1.6 % (0.0-2.0); EOSINOPHILS # (AUTO) 0.5 K/uL (0-0.4); EOSINOPHILS % (AUTO) 8.1 % (0.0-4.0); HEMOGLOBIN 8.9 g/dL (12.0-18.0); LYMPHOCYTES # (AUTO) 1.8 K/uL (2.0-11.5); LYMPHOCYTES % (AUTO) 28.7 % (20.5-51.1); MEAN CORPUSCULAR HEMOGLOBIN 25 pg (27-31); MEAN CORPUSCULAR HGB CONC 31 g/dL (33-37); MEAN CORPUSCULAR VOLUME 82.1 fL (80-94); MONOCYTES # (AUTO) 0.7 K/uL (0.8-1.0); NEUTROPHILS # (AUTO) 3.2 K/uL (1.8-7.7); NEUTROPHILS % (AUTO) 50.6 % (42.2-75.2); PLATELET COUNT (AUTO) 166 K/uL (140-450); RED BLOOD CELL COUNT(AUTO) 3.54 MIL/uL (4.20-6.10); RED CELL DISTRIBUTION WIDTH 23.4 % (11.6-13.7); WHITE BLOOD COUNT (AUTO) 6.3 K/uL (4.8-10.8)
[2023-06-26] MEDS: levETIRAcetam 500 MG in NACL 0.9% 100 ML IV SCH ×2 (08:56→20:00)
[2023-06-26] MEDS: COLISTIMETHATE SODIUM 75 MG in NACL 0.9% 100 ML IV SCH (08:57)
[2023-06-26] MEDS: FUROSEMIDE 20 MG/2 ML VIAL IVP SCH (08:58)
[2023-06-26] MEDS: carvediloL 12.5 MG TAB PO SCH ×2 (08:59→20:42)
[2023-06-26] MEDS: hydrALAZINE 25 MG TAB PO SCH ×3 (08:59→16:57)
[2023-06-26] MEDS: AMIODARONE 200 MG TAB PO SCH ×2 (09:00→20:42)
[2023-06-26] MEDS: THERAHONEY GEL 42.5 GM TP SCH (13:00)
[2023-06-26] MEDS: HYDRAGUARD CREAM TP SCH (13:00)
[2023-06-27] VITALS (7 sets, daily range): BP systolic 130–181; BP diastolic 62–85; PULSE 54–66; RESP 20; TEMP 96.9–98; O2SAT 95–100
[2023-06-27] MEDS: HYDRAGUARD CREAM TP SCH (00:49)
[2023-06-27] MEDS: hydrALAZINE 20 MG/ML VIAL IVP PRN (02:49)
[2023-06-27 05:42] LABS: BASOPHILS % (AUTO) 0.4 % (0.0-2.0); EOSINOPHILS # (AUTO) 0.5 K/uL (0-0.4); EOSINOPHILS % (AUTO) 9.1 % (0.0-4.0); HEMATOCRIT 27.9 % (36-52); HEMOGLOBIN 8.5 g/dL (12.0-18.0); LYMPHOCYTES % (AUTO) 34.5 % (20.5-51.1); MEAN CORPUSCULAR HEMOGLOBIN 25 pg (27-31); MEAN CORPUSCULAR HGB CONC 31 g/dL (33-37); MEAN CORPUSCULAR VOLUME 82.1 fL (80-94); MONOCYTES # (AUTO) 0.6 K/uL (0.8-1.0); MONOCYTES % (AUTO) 10.1 % (1.7-9.3); NEUTROPHILS # (AUTO) 2.7 K/uL (1.8-7.7); NEUTROPHILS % (AUTO) 45.9 % (42.2-75.2); PLATELET COUNT (AUTO) 157 K/uL (140-450); RED CELL DISTRIBUTION WIDTH 22.4 % (11.6-13.7); WHITE BLOOD COUNT (AUTO) 5.9 K/uL (4.8-10.8)
[2023-06-27 06:19] LABS: ANION GAP 12.7 (8-16); CALCIUM 9.7 mg/dL (8.5-10.1); CARBON DIOXIDE 30.6 mmol/L (21-32); CREATININE 1.5 mg/dL (0.6-1.3); POTASSIUM 3.3 mmol/L (3.5-5.1)
[2023-06-27] MEDS: carvediloL 12.5 MG TAB PO SCH (08:27)
[2023-06-27] MEDS: hydrALAZINE 25 MG TAB PO SCH (08:27)
[2023-06-27] MEDS: AMIODARONE 200 MG TAB PO SCH (08:28)
[2023-06-27] MEDS: FUROSEMIDE 20 MG/2 ML VIAL IVP SCH (08:28)
[2023-06-27] MEDS: levETIRAcetam 500 MG in NACL 0.9% 100 ML IV SCH (08:33)
[2023-06-27] MEDS: POTASSIUM CHLORIDE 20% 40 MEQ/15 ML UDC GT PRN (09:28)
== END 2023-06-27 12:30 | DRG 130 ==
LOC: MED 18:29 → MTU 21:35 → MMU 22:04 → MIC 06-16 16:21 → MMU 06-17 19:08
PROVIDERS: ADMIT Hospitalist; ATTEND Hospitalist
PROC: 5A1955Z Respiratory Ventilation, Greater than 96 Consecutive Hours (ICD-10-PCS; principal; 2023-06-15)
DX: J18.9 Pneumonia, unspecified organism (principal); N17.0 Acute kidney failure with tubular necrosis; I50.23 Acute on chronic systolic (congestive) heart failure; L89.154 Pressure ulcer of sacral region, stage 4; R53.2 Functional quadriplegia; I42.9 Cardiomyopathy, unspecified; E87.0 Hyperosmolality and hypernatremia; J96.11 Chronic respiratory failure with hypoxia; I11.0 Hypertensive heart disease with heart failure; Z93.0 Tracheostomy status; H54.62 Unqualified visual loss, left eye, normal vision right eye; G40.909 Epilepsy, unspecified, not intractable, without status epilepticus; Z16.12 Extended spectrum beta lactamase (ESBL) resistance; N39.0 Urinary tract infection, site not specified; Y95 Nosocomial condition; Z20.822 Contact with and (suspected) exposure to COVID-19; J40 Bronchitis, not specified as acute or chronic; I48.92 Unspecified atrial flutter; E87.6 Hypokalemia; Z79.899 Other long term (current) drug therapy; Z79.4 Long term (current) use of insulin; Z99.11 Dependence on respirator [ventilator] status
CPT/HCPCS: 36415; 36600; 71045; 74018; 76770; 76856; 80048; 80053; 80202; 81001; 82550; 82553; 82803; 82948; 83605; 83735; 83880; 84484; 85025; 85610; 85730; 87040; 87070; 87081; 87086; 87205; 89220; 93005; 94002; 94003; 96365; 96368; 99291; J0282; J0360; J0456; J0696; J0770; J1160; J1940; J1953; J2001; J2060; J2185; J2270; J2543; J3370; J3480; J3490; J7030; J7060; P9046; Q0092